=== PATIENT | male | born 1935 | race Caucasian/White ===

== ENCOUNTER 2017-06-17 15:17 | Inpatient (IN) | payer MEDICARE, OTHER ==
[2017-06-17] VITALS (9 sets, daily range): BP systolic 86–203; BP diastolic 60–109; PULSE 99–123; RESP 13–20; O2SAT 93–99
[~2017-06-17] VITALS: Ht 177.8 cm; Wt 86.9 kg
[~2017-06-17 15:17] MED LIST: ASPI1TAB5 PO; ASPI81TA2 PO; CLIN300C4 PO; HYDR10TA12 PO; KETO200T PO; MULT-892 PO; OMEP10SU PO; TUMS PO; [UNRECOGNIZED DRUG - CODE] PO
--- NOTE | 2017-06-17 15:45 | ED.REPORT ---
HPI-Syncope Date of Service Jun 17, 2017 ED Provider: Devon Canela MD Pt is an 81 year old male with a history of HTN, hyperlipidemia, and CAD who presents to the ED via EMS after a syncopal episode prior to arrival. He c/o associated dizziness, LOC, nausea, an episode of spitting secondary to the nausea, weakness, and fatigue. He denies head pain, chest pain, SOB, vomiting, and injury. The pt reports that he was putting his groceries into his car when he felt dizzy and had a syncopal episode. Per EMS, witnesses state that the pt hit the back of his head on the concrete, but did not lose complete consciousness. EMS reports that the pt was reluctant to go to the hospital, but then he had a 2nd syncopal episode. EMS determined that the pt was in A-fib en route with a blood pressure of 135/94. Pt was given 8 mg of Zofran en route. Nursing Notes Stated Complaint: SYNCOPAL EPISODE Chief Complaint: Dysrhythmia/Cardiac Nursing Notes Reviewed: Yes ([employer] not reconciled) Allergies: Coded Allergies: No Known Allergies (Verified , 08/27/07) Scheduled Aspirin-Expunged Drug, Do Not Renew! (Aspirin-Expunged Drug, Do Not Renew!) 81 Mg Tablet 81 MG PO DAILY Cetirizine HCl (Zyrtec) 10 Mg Capsule 10 MG PO HS Cholecalciferol (Vitamin D3) (Vitamin D3) 1,000 Unit Tab.chew 1,000 UNIT PO DAILY Doxazosin (Cardura) 2 Mg Tablet 4 MG PO BID Fluticasone Propionate (Fluticasone Propionate Nasal) 16 Gm [place].susp 1 SPRAY NS BID Furosemide (Furosemide) 40 Mg Tablet 40 MG PO DAILY Hydrocortisone (Hydrocortisone) 20 Mg Tablet 30 MG PO DAILY Ketoconazole-Expunged Drug, Do Not Renew! (Ketoconazole-Expunged Drug, Do Not Renew!) 200 Mg Tablet 200 MG PO BID Lisinopril (Lisinopril) 10 Mg Tablet 10 MG PO 1-2X DAY Metoprolol Tartrate (Metoprolol Tartrate) 25 Mg Tablet 25 MG PO BID Phenylephrine HCl (Sudafed PE) 10 Mg Tablet 10 MG PO Q12HR Pravastatin (Pravastatin) 40 Mg Tablet 40 MG PO DAILY Salmeterol Xinafoate (Serevent Diskus) 50 Mcg/Puff Inhaler 1,400 MCG IH Q12HR Scheduled PRN Albuterol Sulfate (Ventolin HFA Inhaler) 200 Puff/18 Gm Inhaler 1 PUFF INH Q4- 6HR PRN PRN For Wheezing General Time Seen by Provider: 15:30 Chief Complaint Almost passed out Syncope Description: First episode Hx Obtained From: Patient, EMS Arrived By: Ambulance Onset Occurred: Just prior to arrival Symptom Duration: Duration unknown Location: No: Head Severity: Current: No pain currently Severity: Maximum: No pain Recent Healthcare: No recent doctor visit, No recent hospitalization Similar Sx Previous: Yes Past Medical History Past Medical History Restrictive lung disease (patient evaluated for COPD, the workup was negative, and pulmonology thought that this was restrictive disease secondary to scarring following his CABG) Coronary artery disease Bioprosthetic aortic valve Peripheral arterial disease Carotid artery disease Hyperlipidemia History of left subclavian artery stenosis Hypertension History of prostate cancer History of anemia History of spinal stenosis History of idiopathic peripheral neuropathy, history of diastolic congestive heart failure Renal Insufficiency (Cr 1.5) Past Surgical History Denies Smoking History Former Smoker Social History Alcohol Use: "Social" Ambulatory Status Independent Review of Systems Constitutional: Reports: Fatigue Respiratory: Denies: Shortness of breath Cardiovascular: Denies: Chest pain GI: Reports: Nausea, Denies: Vomiting Skin: Denies Diaphoresis Neurologic: Reports: Change LOC, Dizziness, Syncope, Weakness Complete sys rev & neg: except as marked. Physical Exam Initial Vital Signs Vital Signs (First) Date Time Temp Pulse Resp B/P Pulse Ox O2 Delivery O2 Flow Rate FiO2 06/17/17 15:24 36.7 103 13 171/109 99 Room Air Initial VS: Reviewed, Vital signs abnormal Neck: Supple, Full range of motion Abdomen / GI: Soft, Non-tender Upper Extremities: Vascular intact, Neuro intact Skin: Warm, Dry, No cyanosis Psychiatric: Mood/affect normal, Behavior normal General/Constitutional: Awake, Alert, No acute distress, Well appearing Respiratory / Chest: Atraumatic, Breath sounds NL, Breath sounds = bilat Heart Sounds / Murmur: Positive: Murmur present... (II/) Atrial flutter. Lower Extremity / Pelvis / MS: Neurologic intact, Vascular intact Neurologic: Oriented X3, Speech NL Head / Eyes: Atraumatic No vivisble signs of trauma Interpretation & Diagnostics Lab Results Interpretation Result Diagram: 06/17/17 1602 06/17/17 1602 Test 06/17/17 16:02 White Blood Count 10.2th/mm3 (3.8-10.1) Red Blood Count 4.08mil/mm3 (4.40-5.80) Hemoglobin 12.3g/dL (13.8-17.2) Hematocrit 37.5% (41.0-50.0) Mean Corpuscular Volume 91.9fL (81-100) Mean Corpuscular Hemoglobin 30.1pg (27.0-35.0) Mean Corpuscular Hemoglobin Concent 32.8% (32.0-37.0) Red Cell Distribution Width 14.1% (12.3-15.4) Platelet Count 154bil/L (150-400) Neutrophils (%) (Auto) 68.4% (40-74) Lymphocytes (%) (Auto) 19.2% (14-46) Monocytes (%) (Auto) 9.9% (4-12) Eosinophils (%) (Auto) 1.9% (0-5) Basophils (%) (Auto) 0.3% (0-3) Prothrombin Time 10.3sec (8.1-12.5) Prothromb Time International Ratio 0.96ratio Sodium Level 140mEq/L (134-144) Potassium Level 4.3mEq/L (3.5-5.2) Chloride Level 101mEq/L (97-108) Carbon Dioxide Level 19mmol/L (18-29) Blood Urea Nitrogen 29mg/dL (8-27) Creatinine 1.54mg/dL (0.76-1.27) Estimat Glomerular Filtration Rate 46mL/min (>59) Glucose Level 113mg/dL (60-99) Calcium Level 9.7mg/dL (8.5-10.1) Magnesium Level 2.2mg/dL (1.6-2.6) Total Bilirubin 0.4mg/dL (0.0-1.2) Aspartate Amino Transf (AST/SGOT) 19U/L (0-50) Alanine Aminotransferase (ALT/SGPT) 10U/L (0-44) Alkaline Phosphatase 75U/L (25-160) Troponin T < 0.010ug/L (0.0-0.011) Total Protein 8.0g/dL (6.4-8.4) Albumin 4.3g/dL (3.4-5.0) Thyroid Stimulating Hormone (TSH) 1.370uIU/mL (0.450-4.500) Lab Results Interpretation: CBC normal CMP mild renal insufficiency Prone and normal Magnesium normal TSH normal ECG Interpretation ECG Interpretation: EKG demonstrates. Atrial flutter with a ventricular rate of 110 and a predominantly to 1 block, nonspecific repolarization abnormalities more pronounced in V4 through V6-computer reads QT prolongation with QTC of 547, but I think this is an over read air by the computer the atrial fibrillation/flutter is new compared to prior EKGs Time: 15:40 Interpreted by: ED physician ECG Interpretation: Please see the rhythm strip from 15:38 demonstrating atrial flutter with no ventricular conducted beats for prolonged genia corresponding to the patient's syncopal episode ECG Interpretation: ECG - 12/27/16 Interpretation Summary: The left ventricle is normal in size. Left ventricular systolic function is borderline reduced. The ejection fraction is estimated to be 50-55%. There are no focal wall motion abnormalities. Assessment of diastolic parameters indicates a restrictive filling pattern of the left ventricle consistent with significantly elevated filling pressures. LV diastolic function has decreased. The right ventricle is normal in size and function. The right ventricular systolic pressure is estimated at 52 mmHg assuming a right atrial pressure of 8 mm Hg. RVSP has increased. There is mild tricuspid regurgitation. There is a bioprosthetic aortic valve. The prosthetic aortic valve is well- seated. The peak aortic velocity is 2.33 m/sec. The peak aortic velocity on the previous exam was 2.24 m/sec. No aortic regurgitation is present. There is no other significant valvular heart disease. The ascending aorta is mildly enlarged. X-Ray Chest Interpretation Chest Xray Interpretation: IMPRESSION: 1. Persistent loculated left pleural effusion with adjacent airspace opacity consist with compressive atelectasis versus pneumonia or neoplasm. Continued radiographic surveillance to resolution is recommended. Dictated by: Casey ROMERO Interpreted: Lashaun Waggoner MD on 06/17/2017 at 16:05 View: Portable, 1 view Interpretation / Wet Read by: Interpret - Radiologist CT Head Interpretation IMPRESSION: No CT evidence of acute intracranial pathology. Dictated by: Vernon Aguila M.D. on 06/17/2017 at 16:51 Study: Head CT no contrast Interpretation / Wet Read by: Interpret - Radiologist Re-Eval/Medical Decision Med Decision/Clinical Course This is an 81-year-old male who presents having had now multiple episodes of syncope. He reports he had an episode of syncope at home yesterday but did not tell anyone today, but EMS was called when he had a syncopal episode today while loading his groceries. He reports no antecedent symptoms up until a few seconds before it happened when he felt lightheaded, may be some palpitations, but denied chest pain or shortness of breath. EMS was called and is found to be in new onset atrial fibrillation/flutter and had sizable positives during transport, and then as he arrived in the emergency department had another episode of syncope that corresponded to a prolonged episode of marked positive- with atrial, but not ventricular conduction. I was immediately called to the room, and patient's waking up. When he wakes up he has no complaints. Denies chest pain or shortness of breath. He is back in atrial flutter and has a controlled rate. He denies being on any antibiotic. The prior history of both coronary disease and a bioprosthetic aortic valve. He denies fevers chills or infectious symptoms. His blood pressure was normal,'s mentation and exams were normal following this syncopal episode, his third in less than 24 hours. His blood work was normal. Chest x-ray was normal. Cardiology was consulted and saw the patient. They are hoping to perform an atrial oblation the thought that this may be able to fix the problem and need for pacemaker insertion. The patient is being admitted for continued management, and is admitted in improved condition. She did report and his initial syncopal episode that he fell and hit his head, his head is mildly sore-so a head CT was obtained, was negative. Source of Hx: Old records, EMS Re-Evaluation/Progress : Time of Eval: 16:00 Re-Evaluation/Progress Note: Pt rechecked. Informed pt of plan for admission. Pt understands and agrees with plan for admission. All questions addressed. Consultation #1: Referral / Consult Name: Justyn Tyson MD Consulted With: Hospitalist Call Returned at: 16:08 Preschool Teacher Aide: Will see patient, Agrees with eval, Agrees with plan, Accepts admit Consultation #2: Referral / Consult Name: Tracey Stephens MD Consulted With: Cardiology Call Returned at: 15:55 Preschool Teacher Aide: Will see patient, Agrees with eval, Agrees with plan Note: Consulted with Dr. Stephens, who is on-call for Dr. Ware, pt's brim stiffener. Their plan is to do an ablasion. Differential Diagnosis: Positive: Arrhythmia, Dysrhythmia, Negative: Abdominal aortic aneurysm, Acute coronary syndrome, Anemia, Autonomic dysfunction, Closed head injury, Electrolyte disorder, Head trauma, Intracranial bleed, Medication-induced Counseled Regarding: Diagnosis, Lab results, Need for admission Discharge & Departure Impression: Primary Impression: Atrial arrhythmia Additional Impression: Syncope Syncope type: unspecified Qualified Code: R55 - Syncope and collapse Disposition: ADMITTED TO HOSPITAL Discharge Condition All VS Reviewed: Yes Condition: Stable Referrals: Saurabh Crane MD (PCP) Crit Care Except Billable Proc Time Spent: 30-74 minutes Services Performed: Patient management by me, Time spent at bedside, Reviewing test results, Reviewing imaging, Discussing patient care, Documentation in record Scribe Attestation Portions of this note were transcribed by Yue Jaffe. I, Dr. Canela personally performed the history, physical exam and medical decision-making; I reviewed and confirmed the accuracy of the information in the transcribed note. Signed by: Nicole Figueredo, 06/17/17. copies to: Saurabh Crane MD, Matthew F MD Jun 17, 2017 15:44 Yue Tobin Jun 17, 2017 16:56
[2017-06-17] MEDS ORDERED: PHEN-877 PO (15:58)
[2017-06-17] MEDS ORDERED: PRAV40TA PO (15:58)
[2017-06-17] MEDS ORDERED: METO25TA6 PO (15:58)
[2017-06-17] MEDS ORDERED: FURO40TA4 PO (15:58)
[2017-06-17] MEDS ORDERED: FLUT16SP NS (15:58)
[2017-06-17] MEDS ORDERED: CHOL10008 PO (15:58)
[2017-06-17] MEDS ORDERED: ALBU18HF INH (15:58)
[2017-06-17] MEDS ORDERED: LISI10TA PO (15:58)
[2017-06-17] MEDS ORDERED: HYDR20TA2 PO (15:58)
[2017-06-17] MEDS ORDERED: CETI10CA PO (15:58)
[2017-06-17] MEDS ORDERED: DOXA2TAB52 PO (15:58)
[2017-06-17] MEDS ORDERED: SALM50DI IH (15:58)
[2017-06-17 16:06] LABS: BASOPHILS % (AUTO) 0.3 % (0-3); EOSINOPHILS % (AUTO) 1.9 % (0-5); MONOCYTES % (AUTO) 9.9 % (4-12); Mean Corpuscular Hemoglobin 30.1 pg (27.0-35.0); Mean Corpuscular Volume 91.9 fL (81-100); NEUTROPHILS % (AUTO) 68.4 % (40-74); Platelet Count 154 bil/L (150-400)
[2017-06-17 16:09] LABS: INR 0.96 ratio
[2017-06-17 16:16] LABS: Magnesium 2.2 mg/dL (1.6-2.6)
--- NOTE | 2017-06-17 16:23 | DRSVH ---
PROCEDURE: X-RAY CHEST ONE VIEW, PORTABLE ([id number]) INDICATIONS: AFIB TECHNIQUE: One view of the chest was acquired. COMPARISON: [facility], CT, CT CHEST W CONTRAST, 01/11/2017, 1:34 PM. [facility], CR, XR CHEST 1V, 01/11/2017, 11:49 AM. [facility], CR, XR CHEST 2VW, 6, 13:21. [facility], CR, XR CHEST 1VW, 10/03/2016, 14:31. [facility], US, US CHEST PLEURAL, 10/02/2016, 13:10. [facility], CR, CHEST 1VW (PORTABLE), 08/16/2010, 10 :52. FINDINGS: Surgical changes and devices: None. Lungs and pleura: Chronic loculated left pleural effusion redemonstrated and persistent left basilar patchy airspace opacity. Right lung remains clear. Mediastinum: Mediastinal contours appear normal. Heart size is normal. Right paratracheal soft tis aurora prominence unchanged over time. Bones and chest wall: No suspicious bony lesions. Overlying soft tissues appear unremarkable. IMPRESSION: 1. Persistent loculated left pleural effusion with adjacent airspace opacity consist with compressive atelectasis versus pneumonia or neoplasm. Continued radiographic surveillance to resolution is recom mended. Dictated by: Casey Andrew A Interpreted: Lashaun Waggoner MD on 06/17/2017 at 16:05 Approved by: Lashaun Waggoner MD, PhD on 06/17/2017 at 16:21
[2017-06-17 16:28] LABS: TROPONIN T < 0.010 ug/L (0.0-0.011)
--- NOTE | 2017-06-17 16:56 | DRSVH ---
PROCEDURE: CT BRAIN WITHOUT CONTRAST ([id number]) INDICATIONS: syncope -> blunt head trauma TECHNIQUE: Noncontrast 4.5 mm thick angled axial sections acquired from the foramen magnum to the vertex, with c oronal reformats. COMPARISON: None. FINDINGS: Image quality: Excellent. CSF spaces: Basal cisterns are patent. No extra-axial fluid collections. Ventricles are normal in size and shape. Brain: No midline shift. No intracranial masses or hemorrhage. [place]-white matter interface is norm al. Skull and face: Calvarium and visualized facial bones are intact, without suspicious lesions. Mild supraorbital soft tissue contusion. Sinuses: Visualized sinuses and mastoids are clear. IMPRESSION: No CT evidence of acute intracranial pathology. Dictated by: Vernon Aguila M.D. on 06/17/2017 at 16:51 Approved by: Vernon Aguila M.D. on 06/17/2017 at 16:54
[2017-06-17] MEDS ORDERED: Polyethylene Glycol (PEG) 17 Gm Powder PO PRN (17:00)
[2017-06-17] MEDS ORDERED: Alum-Mag Hydrox-Simeth 30 mL Suspension PO PRN (17:00)
[2017-06-17] MEDS ORDERED: Heparin 25K Unit/500mL 0.45 NS 25,000 UNIT in IV Premix 1 EACH IV SCH (18:35)
[2017-06-17] MEDS ORDERED: Heparin 5,000 Unit/mL Inj IVPUSH PRN (18:35)
--- NOTE | 2017-06-17 18:43 | PCM.HPMED ---
Subjective Date of Service Jun 17, 2017 Primary Provider: Admitting Physician: Primary Care Physician: Saurabh Crane MD Attending Physician: Chief Complaint: Syncope History of Present Illness: 81-year-old male with a history hypertension, hyperlipidemia, and CAD who was recently admitted for diabetic foot ulcer present to the emergency department via EMS due to syncopal episode that occurred while putting groceries in the back of his car. Patient states that he had another syncopal episode yesterday when he was sitting in ventilator was tight shoe and then passed out and fell on the floor. The patient states that he can only feel is coming on right before he passes out and began to feel dizzy and lightheaded before waking up on his back with people standing around. There is no incontinence of bowel or bladder and no reports of shaking. It is questionable the patient had an second syncopal episode following the episode that brought him in here. Patient was noted to be in A. fib when EMS arrived and in the emergency department rhythm strips indicate a positive greater than 3 seconds with suspected atrial flutter. Dr. Stephens was able to assess the patient and his currently attempting to get a hold of Dr. Green or possible ablation, although there is no timetable. EKG showed probable A flutter with a ventricular rhythm that was was irregular and a prolonged QTC at 547. Blood work showed new acute kidney injury and mild hyperglycemia. Troponin was negative and TSH was normal. Review of Systems: Complete review of systems performed; pertinent positives and negatives per history of present illness, all other systems reviewed and are negative Allergies Coded Allergies: No Known Allergies (Verified , 06/17/17) Home Medications Aspirin-Expunged Drug, Do Not Renew! (Aspirin-Expunged Drug, Do Not Renew!) 81 Mg Tablet 81 MG PO DAILY Cetirizine HCl (Zyrtec) 10 Mg Capsule 10 MG PO HS Cholecalciferol (Vitamin D3) (Vitamin D3) 1,000 Unit Tab.chew 1,000 UNIT PO DAILY Doxazosin (Cardura) 2 Mg Tablet 4 MG PO BID Fluticasone Propionate (Fluticasone Propionate Nasal) 16 Gm [place].susp 1 SPRAY NS BID Furosemide (Furosemide) 40 Mg Tablet 40 MG PO DAILY Hydrocortisone (Hydrocortisone) 20 Mg Tablet 30 MG PO DAILY Ketoconazole-Expunged Drug, Do Not Renew! (Ketoconazole-Expunged Drug, Do Not Renew!) 200 Mg Tablet 200 MG PO BID Lisinopril (Lisinopril) 10 Mg Tablet 10 MG PO 1-2X DAY Metoprolol Tartrate (Metoprolol Tartrate) 25 Mg Tablet 25 MG PO BID Phenylephrine HCl (Sudafed PE) 10 Mg Tablet 10 MG PO Q12HR Pravastatin (Pravastatin) 40 Mg Tablet 40 MG PO DAILY Salmeterol Xinafoate (Serevent Diskus) 50 Mcg/Puff Inhaler 1,400 MCG IH Q12HR PMH Restrictive lung disease Coronary artery disease Bioprosthetic aortic valve Peripheral arterial disease Carotid artery disease Hyperlipidemia History of left subclavian artery stenosis Hypertension History of prostate cancer History of anemia History of spinal stenosis History of idiopathic peripheral neuropathy, history of diastolic congestive heart failure Surgical History Denies any past surgical history Family History Father at 77 of pneumonia and mother at 94 without significant health problems Social History Hx Alcohol Use: Yes Hx Substance Use: No Hx Tobacco Use: No Smoking Status: Former Smoker ([id number] history) Exam Vital Signs Vital Sign - Last Date Time Temp Pulse Resp B/P Pulse Ox O2 Delivery O2 Flow Rate FiO2 06/17/17 15:49 99 20 120/77 99 Room Air 06/17/17 15:24 36.7 Exam General: Younger than stated age male is very uncomfortable and in pain in the lumbar region HEENT: PERRLA, EOMI, nonicteric, membranes moist; JVD at 75 Lymph: No lymphadenopathy Cardio: Irregular without noted murmur; difficult to tell but sounds like a physiologically split S2 Respiratory: CTA bilaterally, no wheezes, no crackles Abdomen: Soft, positive bowel sounds, nontender, nondistended Extremities: mild edema, 5/5 strength, sensation intact Psych: Appropriate mood and affect Neuro: CN II through XII grossly intact, sensation intact throughout Skin: No rash Lab and Diagnostics Result Diagram: 06/17/17 1602 06/17/17 1602 X-Rays, CTs and MRIs Brain CT No CT evidence of acute intracranial pathology. Dictated by: Vernon Aguila M.D. on 06/17/2017 at 16:51 Chest x-ray 1. Persistent loculated left pleural effusion with adjacent airspace opacity consist with compressive atelectasis versus pneumonia or neoplasm. Continued radiographic surveillance to resolution is recommended. Dictated by: Casey Choffel RRA Interpreted: Lashaun Waggoner MD on 06/17/2017 at 16:05 12-lead ECG See history of present illness Assessment & Plan 81-year-old male with history of hypertension, hyperlipidemia, and CAD who presents in atrial flutter with syncopal episodes 3 with documented ventricular p on April greater than 3 seconds on rhythm strip in the emergency department. Symptomatic atrial flutter; present on admission; ongoing -Multiple episodes of syncope with likely etiology cardiac/ventricular pause; Rate at 120 currently -Discussed with Dr. Stephens who is consulting with Dr. Green -Considered cardioverting but unknown duration of arrhythmia; patient also ate at noon today -Pacer pads placed on patient overnight -Considering metoprolol but awaiting Dr. Stephens -Starting heparin drip tonight -Tele -DR GREEN TO ABLATE 06/18/17; NPO AT MIDNIGHT Acute kidney injury; prednisone admission; ongoing -Creatinine 1.54 on admit -Possibly related to fluid overload second to CHF -Patient also has likely restrictive lung disease which could cause the JVD -Trial of diuresis tonight. If creatinine worsens consult nephrology Mild anemia; is on medicine; ongoing -Hemoglobin 12.3 -Iron and B12 studies Hypertension with history of subclavian stenosis on the left -Blood pressures are erratic depending on which arm is checked -Systolic Blood pressure is oscillating between 171, 120, and 203 depending on which arm is checked -Continue home blood pressure medications including lisinopril, metoprolol Systolic CHF; present on admission; stable -EF from December revealed 50-55% -JVD noted on exam but no edema noted -Continue lasix History restrictive lung disease-continue inhalers, holding prednisone tonight CAD with hx of CABG-continue aspirin HLP-continue statin Disposition: Patient is being admitted to inpatient status with expected length of stay greater than two midnights due to to severity of presentation, duration of treatment, and risks of adverse events disposition Full Code Pain Evaluation: Adequate Pain Control VTE Prophylaxis: Other (heparin drip) Resuscitation Status: CPR: Attempt Resuscitation Attending Statement The patient was seen and examined together with Dr. Helm on 06/17/2017 and I agree with the history, exam and plan as outlined in the note above. . Mauricio Busatmante DO Jun 17, 2017 16:43 Justyn Tyson MD Jun 20, 2017 18:50
[2017-06-17 19:23] LABS: Unsaturated Iron Binding 271.4 ug/dL
--- NOTE | 2017-06-17 19:28 | NUR ---
Arrival to unit/BP Patient arrived to unit in a stable condition. Reports back pain from ER amada, sandor -- swing resident paged for medication (none PRN). Per report in ED, patient has drastically different BP on each arm. On arrival to unit, right arm showed 203/102 and left arm 144/90-- MD aware. No reports of SOB, no n/v, no syncopal episodes since arrival to unit. Pacer pads on per MD orders.
[2017-06-17] MEDS: Salmeterol 50 mcg/Puff 28 Inhalation Diskus INHALATION SCH (20:39)
[2017-06-18] VITALS (24 sets, daily range): BP systolic 96–172; BP diastolic 50–97; PULSE 111–131; RESP 16–22; O2SAT 93–99
[2017-06-18 00:14] LABS: APPEARANCE,URINE CLEAR (CLEAR,HAZY); COLOR,URINE DARK YELLOW (YELLOW); OCCULT BLOOD,URINE NEGATIVE (NEGATIVE); PH,URINE 5.5 (5.0-8.0); UROBILINOGEN,URINE NORMAL (NORMAL)
[2017-06-18 02:04] LABS: BASOPHILS % (AUTO) 0.3 % (0-3); EOSINOPHILS % (AUTO) 3.1 % (0-5); MONOCYTES % (AUTO) 10.8 % (4-12); Mean Corpuscular Hemoglobin 30.3 pg (27.0-35.0); Mean Corpuscular Volume 92.2 fL (81-100); NEUTROPHILS % (AUTO) 73.9 % (40-74); Platelet Count 141 bil/L (150-400)
[2017-06-18 02:28] LABS: INR 0.98 ratio
[2017-06-18 03:15] LABS: TROPONIN T 0.01 ug/L (0.0-0.011)
--- NOTE | 2017-06-18 04:48 | NUR ---
Tele / O2 / Heparin / BPs No c/o chest pain, Tele Afib/Aflutter with HR 100s to 120s with a rare occ PVC, per [employer] Supervisor. Pacer Pads on Pt per MD orders. SpO2 sats at HS only 90-93% on RA, Pt placed on O2 @ 1L NC for extra cardiac perfusion and SpO2 sats improved 95-97%. IV Heparin drip infusing per Cardiac Protocol, with no signs of bleeding. Blood pressures with significant difference from left side to right side, Pt deines dizziness, H/A, lightheadedness, or visual problems. Urine sample sent to the lab per Protocol and was Negative for culture. Pt compliant with NPO status after midnight for possible Pacemaker placement today 06/18/17.
[2017-06-18] MEDS: Salmeterol 50 mcg/Puff 28 Inhalation Diskus INHALATION SCH ×2 (07:50→20:33)
--- NOTE | 2017-06-18 13:43 | CONS ---
[address] [address] CONSULTATION REPORT PATIENT: TINA YU : 1935 MR#: [id number] ADMIT: 06/17/2017 JOB ID: [id number] CARDIOLOGY CONSULTATION: DATE OF SERVICE: 06/18/2017 CHIEF COMPLAINT: Syncope. HISTORY OF PRESENT ILLNESS: The patient is a delightful, 81-year-old man with a history of severe aortic stenosis with aortic valve replacement in 2010 with stented bioprosthesis. He also has history of coronary artery disease in concurrency with his valve replacement. Radial to PDA by cath. 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 He says in hindsight, he has been feeling, weak, tired and sleepy and short of breath for the past three months. He presents after suffering three syncopal episodes in a 24-hour time span. The first syncopal episode occurred June 16 when he was putting on his socks. The second episode occurred on June 17, when he was at [employer]. He was putting groceries in the trunk when he suddenly blacked out. The third episode occurred in the emergency department when he reported there for syncope evaluation. At that time initially upon arrival he was found to be in atrial flutter with rapid ventricular response but unfortunately he developed ongoing atrial flutter with ventricular complexes, so basically transient complete heart block with associated 11 second pause. The patient has a small abrasion on the back of his head. He says he feels okay right now. His brain imaging showed no evidence of intracranial hemorrhage. Even though his heart rate is 120 beats per minute, he is not aware of any palpitations, chest discomfort or shortness of breath PAST MEDICAL HISTORY: 1. Coronary artery disease, status post CABG, radial to PDA in June 2011. 2. Severe aortic stenosis, status post aortic valve replacement with a stented bioprosthesis, June 2011. 3. New onset atrial flutter just diagnosed yesterday, June 17, 2017 with transient complete heart block. 4. Urinary retention; on doxazosin. 5. History of prostate cancer. 6. Hyperlipidemia. 7. Restrictive lung disease, etiology unknown, monitored by Dr. Gandhi. 8. Low back pain, spinal stenosis, and associated peripheral neuropathy. FAMILY HISTORY: Mother at 94 from old age. Father in his 70s from pneumonia SOCIAL HISTORY: He does not smoke. He quit after [id number] history of smoking. He lives alone with his cat and he says he is not close with his family. ALLERGIES: No known drug allergies. MEDICATIONS: At home: 1. Aspirin 81 mg daily. 2. Pravastatin 40 mg daily. 3. Lisinopril 10 mg daily. 4. Metoprolol tartrate 25 mg. 5. Doxazosin 4 mg twice a day. REVIEW OF SYSTEMS: Weakness, shortness of breath, fatigue, syncope. Diminished urinary stream. Otherwise 10 point review of systems is negative. PHYSICAL EXAMINATION: Vital signs: Temperature is 36.8, blood pressure 96/ 50 pulse 130 beats per minute. Satting 96% on 1 L nasal cannula. Well-nourished man, no apparent distress. Eyes: No sclerae icterus. Neck is supple. No lymphadenopathy. No carotid bruits. Heart: Normal S1, S2. No murmurs. It is irregular and tachy. Lungs with crackles at bases bilaterally. Abdomen is soft, positive bowel sounds. Somewhat protuberant but no hepatosplenomegaly. Extremities: Warm and well perfused. No clubbing, cyanosis, or edema. Skin: No rashes or lesions. neuro - non-focal LABORATORY DATA: Labs reviewed. His INR is 1. Most recent PTT 63, on heparin drip. Hematocrit is 35% today. Normal white count. Platelet count 141. Creatinine is 1.3. Potassium 4.2, magnesium 2.2. Lipids are normal: Total cholesterol 161, triglycerides 105, HDL 62, LDL 78. TSH 1.4. DIAGNOSTIC DATA: EKG obtained yesterday showed somewhat atypical flutter with downward pointing V1 and downward pointing flutter wave pattern in leads 2, 3, and aVF. It does not appear to be classic cavotricuspid isthmus dependent flutter. ASSESSMENT: The patient is an 81-year-old man with three episodes of syncope; one of them was captured on telemetry and is consistent with flutter with transient complete heart block. He was symptomatic during that pause that was 11 seconds long and has had 3 syncope episodes in the past 48 hours. However he is not symptomatic when he is in flutter, so it is unknown how long he has had atrial flutter. In hindsight, he believes he has been feeling somewhat unwell since January. PLAN: 1. Atrial flutter. We discussed treatment options which include either treatment for tachybrady syndrome with dual-chamber permanent pacemaker with antiarrhythmic medication and possible cardioversion in the future or ablation in the future and patient agrees to proceed. I think ablation of the flutter alone may be challenging because this is atypical flutter and also because he carries a diagnosis of tachybrady syndrome. We will obtain echocardiogram and anticipate dual-chamber permanent pacemaker implant later today. Echocardiogram has been ordered to see if he has evidence of tachycardia mediated cardiomyopathy as a result of prolonged tachycardia duration. In terms of medical management, due to transient complete heart block, beta erin has been on hold. As a result, his rate is uncontrolled. 2. Hypertension - his hypertension has been difficult to manage because of wide discrepancy between the right arm and left arm reading. I will suggest to the nursing staff to only check his right arm because that is what is patient support representative for blood pressure that his brain sees and his coronary arteries see, so that needs to be less than 140 at all times. Based on nursing documentation, blood pressure in the right arm is in the 140's and on admission when he was in a stressful situation, it was greater than 200. Because of that I recommend continuing doxazosin 4 mg twice a day which helps with his LUTS as well as hypertension. Additionally I recommend continue lisinopril but increasing the dose from 10 mg daily to 20 mg daily. 3. Hyperlipidemia. Lipids are: Pravastatin 40 mg daily. 4. Coronary disease: On aspirin for life. 5. Volume status - he appears to be euvolemic. His Lasix is on but we certainly have the option to restart it if he develops evidence of pulmonary congestion. 6. Stroke prevention - patient's CHADS2 Vasc score at this moment in time is 4 with points for advanced age, hypertension and vascular disease. He meets criteria for anticoagulation so he has been started on heparin drip, but once procedure is completed will have a low threshold to initiate warfarin. Thank you very much for the opportunity to participate in this patient's care. GENI
--- NOTE | 2017-06-18 14:59 | NUR ---
Case Management: Clarification of patient status: inpatient per MD order from admit. Kamla Francis RN
--- NOTE | 2017-06-18 15:14 | NUR ---
P: Arrythmia I: A-fib 126-115. Had a 5 second pause in ED. NPO for pacemaker placement this evening. Heparin gtt off since 1500 per 's order. No c/o chest pain or SOB. Voiding via urinal without difficulty. Pt has 2 peripheral IV's for procedure. 2L/NC with sats 95%. Afebrile Bp stable. Alert and oriented. Seems to demonstrate a little short term memory loss. E: Stable S: Uses call light appropriately. Frequent rounding.
[2017-06-18] MEDS ORDERED: Vancomycin 1,000mg/200 mL NS IV ONE (17:14)
[2017-06-18] MEDS ORDERED: Heparin 10,000 Unit/1,000 mL NS Premix IV ONE (17:16)
[2017-06-18] MEDS ORDERED: Water for Injection 50 ML IV ONE (17:16)
[2017-06-18] MEDS ORDERED: Vancomycin 1,000 mg Inj ONE (17:16)
[2017-06-18] MEDS ORDERED: Bupivacaine-MPF 0.5% 30 mL Inj ONE (17:16)
[2017-06-18] MEDS ORDERED: 0.9% Sodium Chloride 1,000 ML ONE (17:17)
[2017-06-18] MEDS ORDERED: 0.9% Sodium Chloride 250 ML ONE (17:17)
--- NOTE | 2017-06-18 17:23 | PCM.PNMED ---
Subjective Date of Service Jun 18, 2017 Subjective Assessment: Patient states that since admission to the hospital his symptoms have remained stable. He states that if he sits up in bed he instantly becomes lightheaded and must lay back down. Events Overnight: Since admission patient has remained tachycardic with consistently elevated blood pressures. ROS: Admits palpitations, dizziness. Denies fever/chills, nausea/vomiting, headache, weakness, abdominal pain, chest pain, shortness of breath, increased swelling in hands or feet. Exam Vital Signs Vital Sign - Last Date Time Temp Pulse Resp B/P Pulse Ox O2 Delivery O2 Flow Rate FiO2 06/18/17 15:43 37.4 111 16 125/82 98 Nasal Cannula 1.00 172/73 Intake and Output 06/17/17 06/17/17 06/18/17 Cumulative From/Thru 15:00 23:00 07:00 06/17/17 15:24 - 06/18/17 06:47 Intake Total 425 ml 425 ml Output Total 400 ml 400 ml Balance 25 ml 25 ml Intake Oral 250 ml 250 ml IV Total 175 ml 175 ml Output Urine Total 400 ml 400 ml Exam General: No acute distress, well-developed, well-nourished HEENT: Normocephalic, atraumatic. External ears without defect. Pupils equal, round, and reactive to light and accommodation. Anicteric sclerae, moist conjunctivae. Cardiovascular: Tachycardic with irregularly irregular rhythm. no murmurs, rubs , or gallops appreciated Pulmonary: Clear to auscultation bilaterally with no crackles, wheezes, or rhonchi. Normal respiratory effort with no use of accessory muscles. Abdomen: Bowel tones present. Soft, nontender, nondistended. Extremities: No clubbing, cyanosis, edema Skin: Normal temperature, turgor, and texture; no rash, ulcers, or subcutaneous nodules appreciated. Neurological: Cranial nerves grossly intact. Reflexes, coordination, and sensory function within normal limits. Normal muscle strength, tone, and bulk. Psychiatric: Normal mood and affect. Alert and oriented to person, place, and time IVs and Medications IV Fluids 500 mL normal saline delivered with IV medications. Medications Reviewed: Medications were reviewed in detail Medications High risk medications include: Morphine Lab and Diagnostics Result Diagram: 06/18/17 0758 06/18/17 0200 X-Rays, CTs and MRIs Brain CT No CT evidence of acute intracranial pathology. Dictated by: Vernon Aguila M.D. on 06/17/2017 at 16:51 Chest x-ray 1. Persistent loculated left pleural effusion with adjacent airspace opacity consist with compressive atelectasis versus pneumonia or neoplasm. Continued radiographic surveillance to resolution is recommended. Dictated by: Casey Andrew RRA Interpreted: Lashaun Waggoner MD on 06/17/2017 at 16:05 12-lead ECG See history of present illness Assessment & Plan 81-year-old male with history of hypertension, hyperlipidemia, and CAD who presents in atrial flutter with syncopal episodes 3 with documented ventricular p on April greater than 3 seconds on rhythm strip in the emergency department. Symptomatic atrial flutter; present on admission; ongoing - Multiple episodes of syncope with likely etiology cardiac/ventricular pause; Rate at 120 currently - Discussed with Dr. Stephens who is consulting with Dr. Green - Considered cardioverting but unknown duration of arrhythmia; patient also ate at noon on 06/17 - Pacer pads placed on patient overnight - Heparin drip tonight - Tele - Echo completed 06/18/17 report pending - Pending echo report Dr. Stephens to give further recommendations. Acute kidney injury; prednisone admission; ongoing -Creatinine currently trending down -Possibly related to fluid overload, or acutely increased blood pressures. -Patient also has likely restrictive lung disease which could cause the JVD - Consult nephrology if creatinine begins trending up. 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 -Systolic Blood pressure is oscillating between 171, 120, and 203 depending on which arm is checked - Blood pressures and right arm should remain less than 140 at all times. - Continue to HOLD metoprolol due to transient complete heart block - Restart home lisinopril at 20 mg daily per cardiology - Doxazosin 4 mg initiated per cardiology request Systolic CHF; present on admission; stable -EF from December revealed 50-55% -JVD noted on exam but no edema noted - Hold Lasix, no evidence of fluid congestion at this time. Restart if patient becomes fluid congested. History restrictive lung disease-continue inhalers, holding prednisone CAD with hx of CABG-continue aspirin HLP- lipid panel within normal limits, pravastatin 40 mg Disposition: Patient will discharge home when vital signs are under adequate control, and the appropriate medical therapies have been initiated. Full Code VTE Prophylaxis: Other (heparin drip) Resuscitation Status: CPR: Attempt Resuscitation Attending Statement The patient was seen and examined together with Dr. Helm on 06/18/2017 and I agree with the history, exam and plan as outlined in the note above. . Norman Helm DO Jun 18, 2017 17:23 Justyn Tyson MD Jun 20, 2017 18:44
--- NOTE | 2017-06-18 17:36 | NUR ---
Case Management: IMM explained to patient at 1635, all questions answered. Signed original placed in chart, copy given to patient. Mikaela Kam RN
[2017-06-18] MEDS ORDERED: fentaNYL-PF 50 mCg/mL 2 mL Inj ONE (17:46)
--- NOTE | 2017-06-18 18:08 | DRSVH ---
[facility] [address] [place] [address] Echocardiogram Report Name: TINA YU HStudy Date: 06/18/2017 Height: 70 in Hospital Exam Location: [facility] Weight: 188 lb .Gender: Male BSA: 2.0 m2 : 1935 Age: 81 yrs BP: 96/65 mmHg Reason For Study: Atrial Flutter Ordering Physician: Bereket Rowley Performed By: Alyson Polo Referring Physician: BEREKET ROWLEY Interpretation Summary Aflutter with 2:1 conduction. Normal LV size. Mild LVH. There is mild global hypokinesis. EF is 45-50%. Septal dyskinesis due to conduction system abnormality. Mild MAC with normal mitral valve leaflets. There is mild associated MR. There is moderately elevated gradient across the mitral valve measuring at 6 mm Hg. It is most likely due to tachycardia and short diastole. 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 It is functioning normally. Tricuspid valve leaflets are normal with mild-moderate TR. Estimated PA systolic pressure is 35 mm Hg assuming RA pressure of 3 mm Hg. Compared to prior study 12/27/2016 rhythm changed from sinus bradycardia to atrial flutter. Cardiomyopathy is new Procedure: A two-dimensional transthoracic echocardiogram with color flow and Doppler was performed. The study quality was technically adequate. Comparison is made with the echocardiogram of 12/27/2016. The patient was in atrial flutter with heart rates between 97-128 bpm during the exam. Left Ventricle: The left ventricle is normal in size. Left ventricular wall thickness is borderline increased. The ejection fraction is estimated to be 40-45%. There is mild to moderate global hypokinesis of the left ventricle. Diastolic function could not be accurately assessed due to tachycardia. Right Ventricle: The right ventricle is normal size. Right ventricular systolic function is mild to moderately reduced. Atria: The left atrium is moderately dilated. The right atrium is moderately dilated. The interatrial septum is intact with no evidence for an atrial septal defect. Mitral Valve: The mitral valve leaflets appear moderately thickened, but open well. There is mild to moderate mitral annular calcification. The mitral valve mean gradient is 5 mmHg. There is mild mitral regurgitation. Aortic Valve: There is a bioprosthetic aortic valve. No aortic regurgitation is present. Tricuspid Valve: The tricuspid valve leaflets are thin and pliable. There is mild to moderate tricuspid regurgitation. The right ventricular systolic pressure is estimated at 35 mmHg assuming a right atrial pressure of 3 mm Hg. Pulmonic Valve: The pulmonic valve leaflets are thin and pliable; valve motion is normal. There is mild pulmonic regurgitation. Great Vessels: The aortic root is normal size. The ascending aorta is at the upper limits of normal in size. The IVC is of normal diameter and collapses greater than 50% with a sniff. This suggests a low right atrial pressure of 3 mm Hg. Pericardium/ Pleura There is no pericardial effusion. There is no pleural effusion. MMode/2D Measurements & Calculations LVIDd: 5.0 cm RA long axis LVOT diam LVIDs: 3.8 cm LA A2 area: 22.3 cm FS: 25.1 % LA A4 area: 28.6 cm RA area asc Aorta IVSd: 1.1 cm LA length (vol): 6.1 cm Diam: 3.8 cm LVPWd: 1.2 cm LA vol: 88.9 ml : 14.5 cm LA vol index RA vol: 30.8 ml RA : 15.1 mm2 IVC diam: 1.7 cm LV mcnally. diameter/BSA LV sys. diameter/BSA (cm/m^2): 2.5 (cm/m^2): 1.9 Doppler Measurements & Calculations Ao V2 max MVA(VTI) TR max mateo: 281.5 cm/sec MV V2 mean : 203.7 cm/sec TR max P.8 mmHg : 106.6 cm/sec Ao max PG : 3.3 cm2 MV mean PG : 16.6 mmHg Ao mean PG MV V2 VTI: 25.3 cm LVOT Max Mateo : 128.4 cm/sec EMEKA(I,D): 2.6 cm sev ratio: 0.60 Ao V2 mean LV V1 max PG EMEKA indexed to BSA : 145.3 cm/sec (cm^2/m^2): 1.3 Ao V2 VTI: 31.5 cm LV V1 VTI EMEKA(V,D): 2.7 cm2 : 18.9 cm Reading Physician:06:08 PM
[2017-06-18] MEDS: 0.9% Sodium Chloride 1,000 ML IV SCH (18:46)
--- NOTE | 2017-06-18 19:58 | DRSVH ---
PROCEDURE: X-RAY CHEST ONE VIEW, PORTABLE ([id number]) INDICATIONS: For new leads placed TECHNIQUE: One view of the chest was acquired. COMPARISON: None. FINDINGS: Surgical changes and devices: Sternotomy wires, prior CABG likely has been performed. Cardiac pacem aking device and dual chamber leads present, no pneumothorax.. Lungs and pleura: No pleural effusions or pneumothorax. Lungs are again seen to be abnormal with a small pleural effusion or pleural scarring left lung base and mild bibasilar atelectasis and/or pneum onia.. Mediastinum: Mediastinal contours appear normal. Heart size is normal. Bones and chest wall: No suspicious bony lesions. Overlying soft tissues appear unremarkable. IMPRESSION: Stable appearance of what appears to be mild bibasilar atelectasis and/or pneumonia with pleural fluid or scarring lateral left lung base. Pacemaking device and leads placed, without pneum othorax. Dictated by: David Fischer M.D. on 06/18/2017 at 19:54 Approved by: David Fischer M.D. on 06/18/2017 at 19:57
--- NOTE | 2017-06-18 21:48 | NUR ---
back from [facility] pt back from [facility] around 2014 s/p pacemaker placement, pt AFLUTTER rate 120-130s very few v-paced spikes noted, pt SL, eating dinner tolerating well, dressing to left chest wall C/D/I with a very small shadow of a spot, ice pack on shoulder pt denies any pain, pt was on RA SpO2 low 90s placed pt on 1L SpO2 mid 90s, called pts grand-daughter and gave update and she was going to call her mom (pts daughter)
[2017-06-19] VITALS (20 sets, daily range): BP systolic 110–157; BP diastolic 41–90; PULSE 71–130; RESP 14–24; O2SAT 94–100
--- NOTE | 2017-06-19 00:49 | OP ---
[address] [address] OPERATIVE REPORT PATIENT: TINA YU : 1935 MR#: [id number] ADMIT: 06/17/2017 JOB ID: [id number] DATE OF SURGERY: 06/18/2017 PREOPERATIVE DIAGNOSIS(ES): 1. Intermittent complete heart block. 2. Syncope. 3. Paroxysmal atrial flutter and fibrillation. POSTOPERATIVE DIAGNOSIS(ES): 1. Intermittent complete heart block. 2. Syncope. 3. Paroxysmal atrial flutter and fibrillation. PROCEDURES PERFORMED: 1. Dual-chamber pacemaker implantation. 2. Fluoroscopy. SURGEON: Jason Green MD, electrophysiology attending LINEMAN APPRENTICE: Mohamud German PA-C IMPLANTED DEVICES: 1. [employer] pulse generator, model VQ8579, serial #[id number]. 2. Right atrial lead [employer] [id number], 52 cm, [id number]. 3. RV lead [employer] [id number], 58 cm, serial #[id number]. ANESTHESIA: Bolus dosing of Versed and fentanyl were utilized for an appropriate level of sedation. INDICATION: The patient is a pleasant 81-year-old man with recurrent syncope identified to have pauses of greater than 12 seconds on telemetry on presentation while in atrial flutter. He also has a history of sinus bradycardia with a recent admission with syncope as well. After discussion of risks and benefits of dual-chamber pacemaker implantation he opted to proceed. PROCEDURAL DESCRIPTION: Following informed signed consent, the patient was taken to the EP laboratory in a fasting nonsedated state, where he was prepped and draped in usual sterile fashion. The left infraclavicular region was infiltrated with 40 cc of a 50/50 mixture of bupivacaine and lidocaine. Once adequate anesthesia had been achieved, a 3 cm transverse incision was performed 2 cm below the clavicle. Dissection was carried down to the pectoralis fascia. A pocket was then fashioned using a combination of electrocautery and blunt dissection. Once adequate hemostasis had been achieved, access to the left axillary vein was gotten with a micropuncture needle twice to deploy two 0.035, 3 mm J guidewires. Over the first of these, an 8-Mauritian tear-away sheath was advanced. Once the guidewire was removed, an active fixation lead was advanced to the right ventricular outflow tract and ultimately the RV apex. The lead was affixed in position using associated active fixation screw. It was connected to the external analyzer and demonstrated appropriately sensed R waves, impedance. Capture threshold was checked to 10 V and there was no evidence of diaphragmatic stimulation. Attention was now paid to place the right atrial lead over the previously deployed J guidewire. Another 8-Mauritian tear-away sheath was advanced. Once the guidewire was removed, an active fixation lead was advanced to right atrial appendage. It was affixed in position using associated active fixation screw. The lead was connected to external analyzer. Demonstrated appropriately sensed flutter waves and impedance, with no diaphragmatic stimulation at 10 V of asynchronous pacing. After the position and redundancy of both leads had been confirmed in multiple views the leads were anchored to the prepectoralis fascia using their associated anchoring sleeves and two Ethibond sutures. The pocket was then copiously irrigated with antibiotic solution. The leads were connected to a generator, adjusted to the pocket and affixed to the floor of the pocket using 1-0 Ti-Cron suture. The incision was closed with running layers of absorbable suture. The wound was dressed with skin adhesive and a small dressing. At the end of the procedure, the needle, sponge, instrument counts were correct. COMPLICATIONS: None. ESTIMATED BLOOD LOSS: Negligible. DEVICE MEASURED DATA: 1. Right atrial lead 1.9 mV, flutter waves, 430 ohms. 2. RV lead 9.6 mV, 540 ohms, 0.5 V at 0.4 msec. FINAL PROGRAM PARAMETERS: DDD 60-130 beats per. IMPRESSION: Successful dual-chamber pacemaker implantation. PLAN: 1. Stat portable chest x-ray. 2. PA and lateral chest x-ray in the morning. 3. Device interrogation. 4. IV vancomycin through tomorrow. Doxycycline 100 mg p.o. daily x7. 5. Wound check in one week. ATTENDING STATEMENT: Jason Green MD, electrophysiology attending, was present for and supervised/performed all aspects of this procedure.
[2017-06-19] MEDS: Ondansetron 2 mg/mL 2 mL Inj IVPUSH PRN ×2 (04:07→06:03)
[2017-06-19] MEDS: 0.9% Sodium Chloride 1,000 ML IV SCH ×2 (04:57→14:46)
--- NOTE | 2017-06-19 05:03 | NUR ---
vomiting pt vomiting x2 dark liquid, pt denies being nausea or that his stomach is upset or hurt, gave some zofran anyway. a little bit later pt vomiting dark liquid again this time appears to have a maroon tinge to it, called received order to send for toni, make pt NPO and start NS at 100cc/hr. pt still denying any pain or discomfort. pt can be forgetful. tele AFlutter rate 120s with very few v-paced beats Addendum: 06/19/17 at 0627 by CRAIG SULLIVAN RN emsis came back guiacc positive, pt also vomiting another 200cc notified and received order for 40mg IV protonix
[2017-06-19] MEDS ORDERED: Pantoprazole 4 mg/mL 10 mL Inj IVPUSH ONE (06:20)
[2017-06-19] MEDS ORDERED: Vancomycin Inj 1,000 MG in IV Premix 1 EACH IV ONE (06:50)
[2017-06-19] MEDS: Salmeterol 50 mcg/Puff 28 Inhalation Diskus INHALATION SCH ×2 (08:38→21:10)
--- NOTE | 2017-06-19 10:55 | NUR ---
GEOFFREY/cardio The pt left the unit at 1045 for JOSTIN for a GEOFFREY/Cardioversion. The pt left A&Ox3 with VSS
[2017-06-19] MEDS ORDERED: Propofol 10,000 mCg/mL 20 mL Inj ONE (11:28)
[2017-06-19] MEDS ORDERED: 0.9% Sodium Chloride 250 ML IV PRN (12:11)
[2017-06-19] MEDS ORDERED: EPHEDrine Sulfate 50 mg/mL Inj IVPUSH PRN (12:15)
[2017-06-19] MEDS ORDERED: Phenylephrine 10,000 mCg/mL Inj IVPUSH PRN (12:15)
--- NOTE | 2017-06-19 12:19 | DRSVH ---
PROCEDURE: X-RAY CHEST ONE VIEW, PORTABLE ([id number]) INDICATIONS: For new lead placement TECHNIQUE: One view of the chest was acquired. COMPARISON: [facility], CR, XR CHEST 1VW (PORTABLE), 06/17/2017, 15:37. [facility], CT, CT CHEST W CONTRAST, 01/11/2017, 1:34 PM. [facility], CR, XR CHEST 1VW (POR TABLE), 06/18/2017, 19:11. FINDINGS: Surgical changes and devices: Stable positioning of dual chamber left cardiac pacemaker. Median ster notomy wires. Lungs and pleura: No pleural effusions or pneumothorax. Persistent bibasilar airspace opacities pre sent, left greater than right. Small left pleural effusion redemonstrated.. Mediastinum: Mediastinal contours appear normal. Heart size is normal. Bones and chest wall: No suspicious bony lesions. Overlying soft tissues appear unremarkable. IMPRESSION: 1. Small left loculated pleural effusion redemonstrated and bibasilar airspace opacities not signific antly changed suggestive of pneumonia and/or atelectasis. Neoplasm at the left lung base cannot be e xcluded. Continued radiographic surveillance to resolution is recommended. Dictated by: Casey ROMERO Interpreted: Raj Sofia MD on 06/19/2017 at 8:12 Approved by: Lb Sofia M.D. on 06/19/2017 at 12:17
--- NOTE | 2017-06-19 12:25 | PCM.ANEP1 ---
Post Anesthesia PACU Phase 1 Assessment Vital Signs Vital Signs Date Time Temp Pulse Resp B/P Pulse Ox O2 Delivery O2 Flow Rate FiO2 06/19/17 12:20 82 24 129/58 100 Nasal Cannula 4.00 06/19/17 12:15 83 20 130/58 100 Nasal Cannula 4.00 06/19/17 11:16 130 06/19/17 10:59 129 20 157/72 97 Room Air 06/19/17 10:09 Supplement Oxygen 06/19/17 08:36 37.0 128 18 126/68 98 Room Air Anesthetic Administered: GA, MAC Level of Alertness: Awake, talking CONKLIN's with Equal Strength: Yes Pain: No Pain Scale Score: 0 Nausea or Vomiting: No CV Function & Hydration Stable: No Airway Device: N/A Oxygen Delivery: Nasal Cannula Lungs: Clear to Auscultation Dermatome Level: Full Sensation PACU Phase 2 Assessment Complications: No Follow up Care: N/A Patient Instructions Provided: N/A Mauricio Marquez MD Jun 19, 2017 12:25
--- NOTE | 2017-06-19 12:26 | PCM.HPANE ---
Patient Data Surgeon Admitting Provider:Justyn Tyson MD Attending Provider:Justyn Tyson MD Primary Care Physician:Saurabh Crane MD Other Provider: Reason for Visit Syncope, Bradycardia Ht/WT & BMI Height (Feet): 5 Height (Inches): 10.00 Weight (Kilograms): 84.200 Body Mass Index 26.57 Allergies Coded Allergies: No Known Allergies (Verified , 06/17/17) Past Anesthesia History Anesthesia History: Denies:: Abnormal Airway, Anesthesia Reactions, Difficult Intubation, Fam Anesthesia Reaction, Fam Malignant Hypertherm, Malignant Hyperthermia Diabetes History Hx Diabetes?: No Current Bedside Blood Glucose: 114 MRSA MRSA: No Medications Reported Medications Cholecalciferol (Vitamin D3) (Vitamin D3)1,000 Unit Tab.chew1,000 Unit PO DAILY 06/17/17 Albuterol Sulfate (Ventolin HFA Inhaler)200 Puff/18 Gm Inhaler1 Puff INH Q4-6HR PRN For Wheezing #1 INHALER Ref 0 06/17/17 Phenylephrine HCl (Sudafed PE)10 Mg Ufstkc87 Mg PO Q12HR 06/17/17 Salmeterol Xinafoate (Serevent Diskus)50 Mcg/Puff Inhaler1,400 Mcg IH Q12HR 06/17/17 Pravastatin 40 Mg Jiyfzn03 Mg PO DAILY Ref 0 06/17/17 Metoprolol Tartrate 25 Mg Iwsgoa06 Mg PO BID 30 Days Ref 0 06/17/17 Lisinopril 10 Mg Wsbmor15 Mg PO 1-2X DAY 30 Days Ref 0 06/17/17 Hydrocortisone 20 Mg Cqxfev47 Mg PO DAILY 06/17/17 Furosemide 40 Mg Qtnzmx09 Mg PO DAILY 06/17/17 Fluticasone Propionate (Fluticasone Propionate Nasal)16 Gm Ash[place].susp1 [place] NS BID #16 GM Ref 0 06/17/17 Doxazosin (Cardura)2 Mg Tablet4 Mg PO BID Ref 0 06/17/17 Cetirizine HCl (Zyrtec)10 Mg Herzawc67 Mg PO HS #30 CAPSULE Ref 0 06/17/17 Aspirin-Expunged Drug, Do Not Renew! 81 Mg Fbfpbg65 Mg PO DAILY 04/30/11 Ketoconazole-Expunged Drug, Do Not Renew! 200 Mg Lrjmze405 Mg PO BID 04/30/11 Discontinued Reported Medications Calcium Carbonate-Expunged Drug, Do Not Renew (Tums Chewable-Expunged Drug, Do Not Renew!)500 Mg Fmxgjs722 Mg PO PRN 05/17/11 Omeprazole-Expunged Drug, Do Not Renew! 10 Mg Suspdr.pkt10 Mg PO PRN 05/17/11 Multivitamin (Daily Value)1 Each Tablet1 Each PO DAILY 05/17/11 Aspirin/Acetaminophen/Caffeine (Excedrin Extra Strength Geltab)1 Each Tablet1 Each PO PRN 05/17/11 Clindamycin Hcl 300 Mg Lgytpyr850 Mg PO Q8 Q 8 HOURS X 7 DAYS 05/17/11 Cefuroxime Axetil (Ceftin 25 mg/mL)100 Ml Evudcx34 Mg PO BID BID X 4 DAYS 05/17/11 Hydrocortisone-Expunged Drug, Do Not Renew! 10 Mg Zbfpqc13 Mg PO HS 04/30/11 Hydrocortisone-Expunged Drug, Do Not Renew! 10 Mg Jaccuu60 Mg PO AM #2 04/30/11 History History of ENT Problems?: No HEENT History: Positive for:: Sinus Problem (off and on, currently has a cold) Denies:: Abnormal Airway Cataracts Difficult Intubation Dysphagia Glaucoma Hearing Problem TMJ Denture Type: None Teeth Condition: Within Normal Limits Hx of Heart Problems?: Yes Cardiovascular History: Positive for:: Cardiac Surgery (arotic valve replaced and single bypass) Heart Murmur Hypertension (pt gets two different readings on each arm one side high one side low) Denies:: AICD Abdominal Aortic Aneurism Atrial Fibrillation Chest Pain Congestive Heart Failure Coronary Artery Disease Edema Irregular Heartbeat Pacemaker Peripheral Vascular Rheumatic Fever Thrombophlebitis Valvular Heart Disease Hx of Respiratory Problem?: Yes Respiratory History: Positive for:: COPD ("one doctor said i do one doctor said i dont") Dyspnea Denies:: Asthma Chest Surgery Cough Emphysema Hemoptysis Oxygen Administration Pneumonia Pulmonary Embolism Tuberculosis Use of C-PAP Machine Use of Inhalers / NEBS Hx Neurologic Problems?: Yes Neurological History: Positive for:: Dizziness Denies:: Alzheimer's Disease CVA Dementia Headaches Multiple Sclerosis Parkinson's Disease Peripheral Neuropathy Seizures TIA Hx of GI Problems?: No Gastrointestinal History: Denies:: Cirrhosis Diverticulitis Gall Bladder Disease Gastroesphageal Reflux Gastrointestinal Bleeding Heartburn Hepatitis Hiatal Hernia Liver Disease Rectal Bleeding Hx of Problems?: No Genitourinary History: Positive for:: Kidney Stones (once) Urinary Tract Infection Denies:: HX of Hemodialysis HX of Peritoneal Dialysis: No Male Hx: Positive for:: Prostate Problems (prostate cancer 1989) Denies:: Scrotal Mass Testicular Surgery Skin History: Denies:: History Skin Disorders? Pressure Ulcers Hx Musculoskeletal Problems?: No Musculoskeletal History: Denies:: Back Injury Degenerative Joint Fibromyalgia Joint Replacement Musculoskeletal Trauma Myasthenia Gravis Osteoarthritis Rheumatoid Arthritis Systemic Lupus Hx of Psycho/Social Problems?: No Psycho Social History: Denies:: Anxiety Bipolar Disorder Hx Depression Suicide Attempt Hx Surgeries?: Yes Hx Any Other Health Problems?: Yes Other History: Positive for:: Cancer (prostate had cemo and radation ) Hospitalization Denies:: Endocrine Disease Thyroid Disease History Blood Transfusions: Positive for:: Accept Blood Products? Denies:: Blood Transfuse Reaction Blood Transfusions (unsure) Hx Diabetes: NoBedside Blood Glucose: 114 Hx Alcohol Use: Yes (glass a wine /month)Hx Substance Use: No Smoking Status: Former Smoker (18-orfp-ipgi history) Stop/Bang Treated for Sleep Apnea?: Yes Do You Have a CPAP Machine?: Yes Risk Assessment Category Category 1A: Patient has history of documented sleep apnea, and HAS NOT received any narcotic, sedative or anesthesia administration during this stay. Category 1B: Patient has history of documented sleep apnea, and HAS received any narcotic , sedative or anesthesia administration during this stay Category 2: Patient has SUSPECTED Obstructive Sleep Apnea, and HAS received any narcotic , sedative or anesthesia administration during this stay. Category 3: Patient has SUSPECTED Obstructive Sleep Apnea and HAS NOT received narcotic, sedative or anesthesia administration during this stay. Category 4: Outpatient in Procedural Areas with known sleep apnea or who screen positive for High Risk via the STOP/BANG questionnaire. Exam Exam Vital Signs Vital Signs Date Time Temp Pulse Resp B/P Pulse Ox O2 Delivery O2 Flow Rate FiO2 06/19/17 11:16 130 06/19/17 10:59 129 20 157/72 97 Room Air 06/19/17 10:09 Supplement Oxygen 06/19/17 08:36 37.0 128 18 126/68 98 Room Air 06/19/17 04:12 Supplement Oxygen 06/19/17 03:45 125 20 96 Nasal Cannula 1.00 General Appearance: Alert, Oriented X3, Cooperative, No Acute Distress HEENT/AIRWAY: MP 2, Neck Movement (FROM), Mouth Opening (3 FBMO) Lungs: Clear to Auscultation, Normal Air Movement Heart: Exam Unremarkable, Regular Rate/Rhythm, No Murmurs/Rubs/Gallops Meds/Labs/Diagnostics Admission Meds Current Medications Lisinopril 20 mg 20 mg DAILY PO Last administered on 06/19/17 08:39; Start 06/19 at 08:30 Sodium Chloride 1,000 ml @ 100 mls/hr Q10H IV Last administered on 06/19/17 04 :57; Start 06/18/17 at 18:46 Vancomycin/0.9 % Sod Chloride/ Premix (Vancomycin Inj/ IV Premix) 200 ml @ 134 mls/hr ONCE ONCE IV Last administered on 06/19/17 06:36; Start 06/19/17 at 06: 50; Stop 06/19/17 at 08:19; Status DC Pantoprazole (Protonix Inj) 40 mg ONCE ONCE IVPUSH Last administered on 06:33; Start 06/19/17 at 06:20; Stop 06/19/17 at 06:23; Status DC Lidocaine HCl (Xylocaine Viscous 2% Soln 15mL) 15 ml STK-MED ONCE .ROUTE Last administered on 06/19/17 11:14; Start 06/19/17 at 11:11; Stop 06/19/17 at 11:12; Status DC Bedside Blood Glucose: 114 Labs Test 06/17/17 16:02 06/17/17 20:29 06/17/17 23:35 06/18/17 00:01 Magnesium Level 2.2mg/dL (1.6-2.6) Iron Level 48ug/dL (35-150) Total Iron Binding Capacity 319ug/dL (250-450) Percent Iron Saturation 15%sat (15-50) Unsaturated Iron Binding 271.4ug/dL Thyroid Stimulating Hormone (TSH) 1.370uIU/mL (0.450-4.500) Vitamin B12 Level 540pg/mL (211-946) Folate 11.1ng/mL (>3.0) Hold Urine Received (Received) Urine Color Dark yellow (YELLOW) Urine Appearance Clear (CLEAR,HAZY) Urine pH 5.5 (5.0-8.0) Urine Specific [place] 1.025 (1.003-1.035) Urine Protein Negativemg/dL (NEG,TRACE) Urine Glucose (UA) Negativemg/dL (NEGATIVE) Urine Ketones Negativemg/dL (NEGATIVE) Urine Occult Blood Negative (NEGATIVE) Urine Nitrite Negative (NEGATIVE) Urine Bilirubin Negative (NEGATIVE) Urine Urobilinogen Normalmg/dL (NORMAL) Urine Leukocyte Esterase Negative (NEGATIVE) Urine RBC 0-2/hpf (0-2) Urine WBC 0-5/hpf (0-5) Urine Epithelial Cells Occasional/hpf (NONE-MOD) Urine Crystals None seen (NONE SEEN) Urine Bacteria Few/hpf (NONE-FEW) Urine Hyaline Casts Occasional/lpf (NONE) Urine Granular Casts None seen (NONE SEEN) Urine Waxy Casts None seen (NONE SEEN) Urine Red Blood Cell Casts None seen (NONE SEEN) Urine White Blood Cell Casts None seen (NONE SEEN) Urine Mucus None seen (None Seen) Urine Trichomonas None seen (NONE SEEN) Urine Yeast None (NONE SEEN) Urinalysis Comment None Urine Culture Reflexed Not indicated Test 06/18/17 02:00 06/18/17 14:05 06/19/17 02:54 White Blood Count 9.9th/mm3 (3.8-10.1) Red Blood Count 3.83mil/mm3 (4.40-5.80) Mean Corpuscular Volume 92.2fL (81-100) Mean Corpuscular Hemoglobin 30.3pg (27.0-35.0) Mean Corpuscular Hemoglobin Concent 32.9% (32.0-37.0) Red Cell Distribution Width 14.1% (12.3-15.4) Platelet Count 141bil/L (150-400) Neutrophils (%) (Auto) 73.9% (40-74) Lymphocytes (%) (Auto) 11.8% (14-46) Monocytes (%) (Auto) 10.8% (4-12) Eosinophils (%) (Auto) 3.1% (0-5) Basophils (%) (Auto) 0.3% (0-3) Prothrombin Time 10.5sec (8.1-12.5) Prothromb Time International Ratio 0.98ratio Troponin T 0.010ug/L (0.0-0.011) Triglycerides Level 105mg/dL (0-149) Cholesterol Level 151mg/dL (100-199) LDL Cholesterol, Calculated 78.000mg/dL (0-99) VLDL Cholesterol 21.000mg/dL HDL Cholesterol 52mg/dL (>39) Cholesterol/HDL Ratio 2.90 (0.0-4.4) Activated Partial Thromboplast Time 58.4sec (22.8-33.0) Hemoglobin 11.6g/dL (13.8-17.2) Hematocrit 35.3% (41.0-50.0) Sodium Level 138mEq/L (134-144) Potassium Level 4.1mEq/L (3.5-5.2) Chloride Level 103mEq/L (97-108) Carbon Dioxide Level 20mmol/L (18-29) Blood Urea Nitrogen 26mg/dL (8-27) Creatinine 1.18mg/dL (0.76-1.27) Estimat Glomerular Filtration Rate 63mL/min (>59) Glucose Level 116mg/dL (60-99) Calcium Level 9.3mg/dL (8.5-10.1) Total Bilirubin 0.4mg/dL (0.0-1.2) Aspartate Amino Transf (AST/SGOT) 18U/L (0-50) Alanine Aminotransferase (ALT/SGPT) 8U/L (0-44) Alkaline Phosphatase 63U/L (25-160) Total Protein 7.2g/dL (6.4-8.4) Albumin 3.8g/dL (3.4-5.0) Plan Impression Patient chart reviewed, patient interviewed and anesthestic plan with risks, benefits, and alternatives discussed, and informed consent obtained. NPO per Anesth. Guidelines: Yes ASA Physical Status: ASA3 Severe Disease (A fib) Anesthetic Plan: GA, MAC Bene/Risks/Altern/Consents: Yes HP Complete Prior to Induction: Yes Mauricio Marquez MD Jun 19, 2017 11:27
--- NOTE | 2017-06-19 13:26 | PROCED ---
[address] [address] PROCEDURE NOTE PATIENT: TINA YU : 1935 MR#: [id number] ADMIT: 06/17/2017 JOB ID: [id number] DATE OF SERVICE: 06/19/2017 PREOPERATIVE DIAGNOSIS(ES): POSTOPERATIVE DIAGNOSIS(ES): SURGEON: Tracey Stephens M.D. CHIEF COMPLAINT: Flutter. PROCEDURES PERFORMED: 1. GEOFFREY. 2. DC cardioversion. METHOD: Following informed consent, the patient was sedated by anesthesiologist provider, Dr. Marquez. At this point in time, GEOFFREY was performed. No evidence of left atrial appendage thrombus was identified. At this point in time, the probe was withdrawn and DC cardioversion was performed. 100 joules of synchronized energy was delivered. Normal sinus rhythm was restored. After the procedure, I did a limited device check because patient was A sensed, V paced. I prolonged AV delay from sensed AV delay of 150 msec up to 220 msec. I prolonged paced AV delay from 200 msec up to 250 msec. This resulted in patient being A sensed, V sensed at a rate of 85 beats per minute. No complications in the immediate postprocedure. Thank you very much for the opportunity to participate in this patient's care.
--- NOTE | 2017-06-19 17:02 | NUR ---
Social Work: Initial Assessment Data: Pt is an 81 y/o male admitted for syncope, bradycardia. Pt's PCP is Dr Crane, pt's insurance is Medicare with [employer]. EMR reviewed. Readmit score is 3. WAITER/WAITRESS CABIN CLASS met with pt at bedside, role explained. Pt states he lives alone in [place] in a single story home where he uses a cane occasionally, drives, has no hx of HH or SNF, no LTC or VA benefits, and is not a caregiver. Pt states he daughter lives close and is a good support for him. Pt states he has not been up out of bed much, but expects to go home at d/c. WAITER/WAITRESS CABIN CLASS will continue to follow for possible HH need. Assessment: Pt who is independent at baseline, WAITER/WAITRESS CABIN CLASS will continue to follow for possible HH need. Plan: Pt will likely d/c home via POV when medically stable. WAITER/WAITRESS CABIN CLASS will continue to follow for possible HH need and any other d/c planning needs. ASHLEY Hebert Addendum: 06/19/17 at 1705 by MIKA AGUILAR Amended: Links added.
--- NOTE | 2017-06-19 17:35 | NUR ---
JOSTIN Patient to [facility] bed 1 from room 2023 at 1155 for GEOFFREY/cardioversion with sedation administered pr anesthesia. GEOFFREY complete without complication and cardioversion followed successful with 100 joules x 1. Patient recovered in [facility] until fully awake and able to swallow. Daughter at bedside. Transferred back to room by bed. Report to receiving RN.
--- NOTE | 2017-06-19 17:50 | NUR ---
Cardioversion/POC The pt was successfully converted via cardioversion this morning following a GEOFFREY. The POC is to observe pacer recovery overnight, get the pt moving more, then DC home tomorrow or Saturday. The pt is currently A&Ox3 with VSS and has no complaints of pain N/V/D.
--- NOTE | 2017-06-19 20:38 | PCM.PNMED ---
Subjective Date of Service Jun 19, 2017 Subjective 81-year-old male with history of hypertension, hyperlipidemia, and CAD who presents in atrial flutter with syncopal episodes 3 with documented ventricular p on April greater than 3 seconds on rhythm strip in the emergency department. Assessment: Patient was somnolent on initial examination, lying in bed. He stated that he was not feeling very well and I asked probing questions as to ascertain why, he gave vague answers and did not mention his episodes of vomiting last night. Events Overnight: Overnight patient vomited, with multiple episodes of renching. Later episodes resulted in vomiting a maroon liquid which is found to be quite positive. ROS: Denies fever/chills, nausea/vomiting, headache, weakness, abdominal pain, chest pain, shortness of breath, increased swelling in hands or feet. Exam Vital Signs Vital Sign - Last Date Time Temp Pulse Resp B/P Pulse Ox O2 Delivery O2 Flow Rate FiO2 06/19/17 14:15 36.8 88 20 142/57 98 Room Air 06/19/17 12:34 2.00 Intake and Output 06/18/17 06/18/17 06/19/17 Cumulative From/Thru 15:00 23:00 07:00 06/17/17 15:24 - 06/19/17 06:24 Intake Total 350 ml 703 ml 1478 ml Output Total 875 ml 1000 ml 2275 ml Balance -525 ml -297 ml -797 ml Intake Oral 240 ml 600 ml 1090 ml IV Total 110 ml 103 ml 388 ml Output Urine Total 875 ml 500 ml 1775 ml Emesis 500 ml 500 ml Exam General: No acute distress, well-developed, well-nourished HEENT: Normocephalic, atraumatic. External ears without defect. Pupils equal, round, and reactive to light and accommodation. Anicteric sclerae, moist conjunctivae. Cardiovascular: Tachycardic with irregularly irregular rhythm. no murmurs, rubs , or gallops appreciated Pulmonary: Clear to auscultation bilaterally with no crackles, wheezes, or rhonchi. Normal respiratory effort with no use of accessory muscles. Abdomen: Bowel tones present. Soft, nontender, nondistended. Extremities: No clubbing, cyanosis, edema Skin: Normal temperature, turgor, and texture; no rash, ulcers, or subcutaneous nodules appreciated. New 5 cm laceration on the patient's chest above the left pectoral due to recent pacemaker placement. Neurological: Cranial nerves grossly intact. Reflexes, coordination, and sensory function within normal limits. Normal muscle strength, tone, and bulk. Psychiatric: Normal mood and affect. Alert and oriented to person, place, and time IVs and Medications IV Fluids 1200 mL of normal saline delivered with IV medications. Medications Reviewed: Medications were reviewed in detail Lab and Diagnostics Result Diagram: 06/19/17 0254 06/19/17 0254 X-Rays, CTs and MRIs Brain CT No CT evidence of acute intracranial pathology. Dictated by: Vernon Aguila M.D. on 06/17/2017 at 16:51 Chest x-ray 1. Persistent loculated left pleural effusion with adjacent airspace opacity consist with compressive atelectasis versus pneumonia or neoplasm. Continued radiographic surveillance to resolution is recommended. Dictated by: Casey ROMERO Interpreted: Lashaun Waggoner MD on 06/17/2017 at 16:05 12-lead ECG See history of present illness Cardiac Echo Impressions Echocardiogram Report Interpretation Summary Aflutter with 2:1 conduction. Normal LV size. Mild LVH. There is mild global hypokinesis. EF is 45-50%. Septal dyskinesis due to conduction system abnormality. Mild MAC with normal mitral valve leaflets. There is mild associated MR. There is moderately elevated gradient across the mitral valve measuring at 6 mm Hg. It is most likely due to tachycardia and short diastole. 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 It is functioning normally. Tricuspid valve leaflets are normal with mild-moderate TR. Estimated PA systolic pressure is 35 mm Hg assuming RA pressure of 3 mm Hg. Compared to prior study 12/27/2016 rhythm changed from sinus bradycardia to atrial flutter. Cardiomyopathy is new Assessment & Plan 81-year-old male with history of hypertension, hyperlipidemia, and CAD who presents in atrial flutter with syncopal episodes 3 with documented ventricular p on April greater than 3 seconds on rhythm strip in the emergency department. Symptomatic atrial flutter; present on admission; ongoing - Multiple episodes of syncope with likely etiology cardiac/ventricular pause; - Echo completed 06/18/17 shows EF of 45-50% with septal dyskinesis and new cardiomyopathy. - Pacemaker placed on 06/18 - GEOFFREY completed on 06/19, based on results cardioversion was attempted and was successful. - Continue Tele, to ensure patient stays in sinus rhythm - Continue Heparin drip, bridge to oral anticoagulants - Cardiology following Acute kidney injury; prednisone admission; ongoing - Creatinine currently within normal limits - Possibly related to fluid overload, or acutely increased blood pressures. - Patient also has likely restrictive lung disease which could cause the JVD - Consult nephrology if creatinine begins trending up. 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 - Systolic Blood pressures remained stable today - Blood pressures and right arm should remain less than 140 at all times. - Continue to HOLD metoprolol due to transient complete heart block - Restart home lisinopril at 20 mg daily per cardiology - Doxazosin 4 mg initiated per cardiology request - Carvedilol 25 mg added to patient's regimen 06/19 Systolic CHF, acute on chronic; present on admission; stable -EF from December revealed 50-55% -JVD noted on exam but no edema noted - Echo completed 06/18/17 shows EF of 45-50% with septal dyskinesis and new cardiomyopathy. - Continue lisinopril, doxazosin, aspirin, carvedilol - Hold Lasix, no evidence of fluid congestion at this time. Restart if patient becomes fluid congested. History restrictive lung disease-continue inhalers, holding prednisone CAD with hx of CABG-continue aspirin HLP- lipid panel within normal limits, pravastatin 40 mg Disposition: Patient may discharge home in the next 24 hours if heart rhythm remained sinus. Full Code VTE Prophylaxis: Other (heparin drip) Resuscitation Status: CPR: Attempt Resuscitation Attending Statement The patient was seen and examined together with Dr. Helm on 06/19/2017 and I agree with the history, exam and plan as outlined in the note above. . Norman Helm DO Jun 19, 2017 15:24 Justyn Tyson MD Jun 20, 2017 18:45
[2017-06-20] VITALS (9 sets, daily range): BP systolic 104–163; BP diastolic 59–81; PULSE 60–70; RESP 18–20; O2SAT 91–97
[2017-06-20] MEDS: 0.9% Sodium Chloride 1,000 ML IV SCH ×2 (00:07→06:51)
[2017-06-20 04:29] LABS: Mean Corpuscular Volume 93.5 fL (81-100)
--- NOTE | 2017-06-20 06:30 | NUR ---
cardiac/no nausea pt denies any nausea all shift, no vomiting, tolerating po. tele SR rate 70s a few paced beats notes. pt denies any pain had a pretty restful night. if much more confused/forgetful at night then day
--- NOTE | 2017-06-20 06:53 | NUR ---
IVF this morning wanting to restart IVF, hung NS at 100cc/hr encouraged pt to drink more water
[2017-06-20] MEDS: Salmeterol 50 mcg/Puff 28 Inhalation Diskus INHALATION SCH ×2 (08:30→20:08)
--- NOTE | 2017-06-20 11:24 | DRSVH ---
[facility] [address] [place] [address] Echocardiogram Report Name: TINA YU HStudy Date: 06/19/2017 Height: 70 in Hospital Exam Location: [facility] Weight: 188 lb Gender: Male BSA: 2.0 m2 : 1935 Age: 81 yrs BP: 157/72 mmHg Reason For Study: Atrial Flutter Ordering Physician: Bereket Stephens Performed By: Alyson Polo Referring Physician: BEREKET STEPHENS Interpretation Summary Aflutter with rapid ventricular response (2:1 conduction) Normal LV size; mild global hypokinesis. No significant valvular abnormalities. No evidence of JOSE FRANCISCO thrombus Procedure: Informed consent for Transesophageal Echocardiogram, and use of a contrast agent as needed, was obtained prior to the procedure. Sedation was managed by anesthesiologist; see anesthesiology notes for details. A 2D transesophageal echocardiogram with spectral and color flow Doppler was performed. The patient was in atrial flutter during the exam. There were no complications. Atria: No thrombus is detected in the left atrial appendage. Mitral Valve: The mitral valve leaflets appear mildly thickened, but open well. There is mild mitral annular calcification. Aortic Valve: There is a bioprosthetic aortic valve. Reading Physician:11:24 AM
--- NOTE | 2017-06-20 12:05 | PROG NOTE ---
[address] [address] PROGRESS NOTE PATIENT: TINA YU : 1935 MR#: [id number] ADMIT: 06/17/2017 JOB ID: [id number] DATE: 06/20/2017 SUBJECTIVE: The patient says he feels good today. He regrets that he is not going to make it for his high school reunion in [place], but accepts that this is the right thing to do. Since his cardioversion, his energy level is better, his breathing is better, and he has not had any more nausea. OBJECTIVE: Vital signs: Temperature 36.7, blood pressure 104/66 up to 146/81, pulse 60 beats per minute, satting 94% to 95% on room air. Very pleasant man, no apparent distress. Eyes: No scleral icterus. Neck is supple. No lymphadenopathy. No carotid bruits. Heart: Normal S1, S2. No murmurs. Lungs: Clear to auscultation anteriorly. Abdomen is soft, positive bowel sounds. No hepatosplenomegaly. Extremities: Warm and well-perfused. No clubbing, cyanosis, or edema. Skin: No rashes or lesions. His abdomen is somewhat distended with diminished bowel sounds. His weight is up 1.6 kg between yesterday and today. CURRENT MEDICATIONS: 1. Aspirin 81 mg daily. 2. Pravastatin 40 mg daily. 3. Carvedilol 25 mg twice a day. 4. Lisinopril 10 mg daily. 5. Serevent Diskus. 6. Doxazosin 4 mg twice a day mostly for urinary retention. ASSESSMENT AND PLAN: This is an 81-year-old gentleman with history of coronary artery disease, status post single-vessel coronary artery bypass grafting and paroxysmal atrial flutter with transient heart block. 1. Paroxysmal atrial flutter: Patient is currently on beta erin for flutter prevention. As an outpatient, we have the option for him to see Dr. Green and discuss flutter ablation, but right now will just use beta erin only. 2. I am reluctant to reduce the beta erin dose because I worry he is going to go back into his flutter if we do that. 3. In terms of stroke prevention, he is on heparin drip at this moment in time. He has renal insufficiency. His creatinine is 1.8 today and his calculated glomerular filtration rate is 38 mL/minute consistent with stage III chronic kidney disease. I asked the primary team to explore his options on all anticoagulants. Technically he could be eligible for Eliquis 2.5 mg twice a day or Xarelto 50 mg daily or warfarin. He is not a good candidate for Pradaxa due to advanced age. His options for outpatient anticoagulation will be explored by the primary team. 4. Device therapy: The patient has transient complete heart block. He is status post dual-chamber permanent pacemaker which is healing quite nicely and he appears to be basically 100% atrially paced on the monitor. He is occasionally V paced and I deliberately prolonged his AV delay to minimize the risk of RV pacing 5. Reduced blood pressure: His blood pressure was elevated yesterday peaking at 160/72, so I aggressively titrated up his lisinopril from 10-20 mg per day. Unfortunately now that possibly resulted in renal insufficiency, so will be backing down to the prior dose of 10 mg daily. The cause for his acute renal insufficiency right now is not clear to me and I think the primary team will be exploring this issue. Of note, his urine sample obtained June 18 showed no red blood cells, negative leukocyte esterase, negative nitrates, negative occult blood and no protein. 6. I suspect it could have been just due to low cardiac output in the setting of cardiomyopathy and atrial flutter with rapid ventricular response. Hopefully his kidney function improves. He will be ready to go home tomorrow, June 21. Thank you very much for the opportunity to participate in his care.
--- NOTE | 2017-06-20 13:19 | NUR ---
Evaluation completed. Please go to "Notes" then click on "Assessments and Notes" (bottom left corner of screen). Then select appropriate discipline tab on top of screen.
--- NOTE | 2017-06-20 13:22 | NUR ---
NUTRITION ASSESSMENT: ASSESS: Pt is an 81yo M admitted for syncope and bradycardia. He is status post single-vessel coronary artery bypass grafting and paroxysmal atrial flutter with transient heart block. Cardiology is following. He has been NPOx3 days due to multiple procedures. On 06/19 pt experienced some increased nausea and some vomiting. Today pt does not report any n/v. PMHX: CAD, PAD, HLD, HTN, prostate ca, CHF LABS: Reviewed. 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 zofran GI: 0 BM SKIN: no issues noted CURRENT WTS: 85.8kg, BMI 27.1kg/m2, admit wt 84.8kg DIET: NPOx3 days EST. NEEDS: Kcals: 2145-2575kcal/day (25-30kcal/kg) Pro: 85-100g/day (1-1.2g/kg) NUTRITION DIAGNOSIS: 1.) Inadequate oral intake related to decreased ability to consume sufficient energy as evidenced by current NPO status NUTRITION INTERVENTION: 1.) Recommend advance diet when medically appropriate MONITOR / EVAL: NPO, diet advc, PO, BM, wt, POC, nutrition status. Will continue to monitor per high nutrition risk guidelines
--- NOTE | 2017-06-20 17:34 | PCM.PNMED ---
Subjective Date of Service Jun 20, 2017 Subjective 81-year-old male with history of hypertension, hyperlipidemia, and CAD who presents in atrial flutter with syncopal episodes 3 with documented ventricular p on April greater than 3 seconds on rhythm strip in the emergency department. Assessment: Patient is comfortable laying in bed. He states it is felt considerably better since the surgery and cardioversion. States that he has felt somewhat unsteady on his feet due to peripheral neuropathy. Events Overnight: No acute events overnight. ROS: Denies fever/chills, nausea/vomiting, headache, weakness, abdominal pain, chest pain, shortness of breath, increased swelling in hands or feet. Exam Vital Signs Vital Sign - Last Date Time Temp Pulse Resp B/P Pulse Ox O2 Delivery O2 Flow Rate FiO2 06/20/17 08:10 36.7 60 18 146/81 95 Room Air 06/19/17 12:34 2.00 Intake and Output 06/19/17 06/19/17 06/20/17 Cumulative From/Thru 15:00 23:00 07:00 06/17/17 15:24 - 06/20/17 06:28 Intake Total 300 ml 400 ml 2178 ml Output Total 525 ml 400 ml 3200 ml Balance -225 ml 0 ml -1022 ml Intake Oral 300 ml 400 ml 1790 ml IV Total 388 ml Output Urine Total 525 ml 400 ml 2700 ml Emesis 500 ml Exam General: No acute distress, well-developed, well-nourished HEENT: Normocephalic, atraumatic. External ears without defect. Pupils equal, round, and reactive to light and accommodation. Anicteric sclerae, moist conjunctivae. Cardiovascular: Bradycardic with rate in sinus rhythm. no murmurs, rubs, or gallops appreciated Pulmonary: Clear to auscultation bilaterally with no crackles, wheezes, or rhonchi. Normal respiratory effort with no use of accessory muscles. Abdomen: Bowel tones present. Soft, nontender, nondistended. Extremities: No clubbing, cyanosis, edema Skin: Normal temperature, turgor, and texture; no rash, ulcers, or subcutaneous nodules appreciated. New 5 cm laceration on the patient's chest above the left pectoral due to recent pacemaker placement. Neurological: Cranial nerves grossly intact. Reflexes, coordination, and sensory function within normal limits. Normal muscle strength, tone, and bulk. Psychiatric: Normal mood and affect. Alert and oriented to person, place, and time IVs and Medications IV Fluids 120 mL/hour normal saline Medications Reviewed: Medications were reviewed in detail Lab and Diagnostics Result Diagram: 06/20/17 0358 06/20/17 0358 X-Rays, CTs and MRIs Brain CT No CT evidence of acute intracranial pathology. Dictated by: Vernon Aguila M.D. on 06/17/2017 at 16:51 Chest x-ray 1. Persistent loculated left pleural effusion with adjacent airspace opacity consist with compressive atelectasis versus pneumonia or neoplasm. Continued radiographic surveillance to resolution is recommended. Dictated by: Casey Andrew RRRos Interpreted: Lashaun Waggoner MD on 06/17/2017 at 16:05 12-lead ECG See history of present illness Cardiac Echo Impressions Echocardiogram Report Interpretation Summary Aflutter with 2:1 conduction. Normal LV size. Mild LVH. There is mild global hypokinesis. EF is 45-50%. Septal dyskinesis due to conduction system abnormality. Mild MAC with normal mitral valve leaflets. There is mild associated MR. There is moderately elevated gradient across the mitral valve measuring at 6 mm Hg. It is most likely due to tachycardia and short diastole. 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 It is functioning normally. Tricuspid valve leaflets are normal with mild-moderate TR. Estimated PA systolic pressure is 35 mm Hg assuming RA pressure of 3 mm Hg. Compared to prior study 12/27/2016 rhythm changed from sinus bradycardia to atrial flutter. Cardiomyopathy is new Assessment & Plan 81-year-old male with history of hypertension, hyperlipidemia, and CAD who presents in atrial flutter with syncopal episodes 3 with documented ventricular p on April greater than 3 seconds on rhythm strip in the emergency department. Symptomatic atrial flutter; present on admission; ongoing - Multiple episodes of syncope with likely etiology cardiac/ventricular pause; - Echo completed 06/18/17 shows EF of 45-50% with septal dyskinesis and new cardiomyopathy. - Pacemaker placed on 06/18 - GEOFFREY completed on 06/19, based on results cardioversion was attempted and was successful. - Continue Tele, to ensure patient stays in sinus rhythm - Continue Heparin drip, bridge to oral anticoagulants - Cardiology following Acute kidney injury; present on admission; ongoing - Possibly related to fluid overload, or acutely increased blood pressures. - Patient also has likely restrictive lung disease which could cause the JVD - 06/20 creatinine significantly elevated this morning, fluid started, discussed this with Dr. Stephens who decreased his lisinopril from 20 to 10 - We will reassess tomorrow, if kidney function is improved patient may be discharged at that time Mild anemia; is on medicine; ongoing -Hemoglobin currently stable -Iron panel within normal limits -B12 and folate studies within normal limits Hypertension with history of subclavian stenosis on the left -Blood pressures are erratic depending on which arm is checked, nurses are to check RIGHT arm only per request of cardiology. - Systolic Blood pressures were considerably lower than previous, lisinopril decreased from 20-10 - Blood pressures and right arm should remain less than 140 at all times. - Continue to HOLD metoprolol due to transient complete heart block - Doxazosin 4 mg initiated per cardiology request - Carvedilol 25 mg added to patient's regimen 06/19 Systolic CHF, chronic; present on admission; stable -EF from December revealed 50-55% -JVD noted on exam but no edema noted - Echo completed 06/18/17 shows EF of 45-50% with septal dyskinesis and new cardiomyopathy. - Continue lisinopril, doxazosin, aspirin, carvedilol - Hold Lasix, no evidence of fluid congestion at this time. Restart if patient becomes fluid congested. History restrictive lung disease-continue inhalers, holding prednisone CAD with hx of CABG-continue aspirin HLP- Lipid panel within normal limits, pravastatin 40 mg Peripheral neuropathy - Pt involved in the patient's care and evaluating discharge Disposition: Patient may discharge home in the next 24 hours if heart rhythm remained sinus, and kidney function improves. Full Code VTE Prophylaxis: Other (heparin drip) Resuscitation Status: CPR: Attempt Resuscitation Attending Statement The patient was seen and examined together with Dr. Helm on 06/20/2017and I agree with the history, exam and plan as outlined in the note above. . Norman Helm DO Jun 20, 2017 12:55 Justyn Tyson MD Jun 20, 2017 18:48
--- NOTE | 2017-06-20 17:57 | NUR ---
Multidisciplinary Communication 0838 - His daughter Candida called and requested an update. After she was able to identify the patients name and date of she was given an update. She said to pass along to the MDs that she and her family were concerned with his neuropathy and his ability to get up and move around. She also said that her sister Mikaela would be able to stay with their dad this weekend after he discharged. 0950 - Discussed his care with Dr. Tyson, Dr. Cullen, and the rest of the multidisciplinary care team during morning rounds. Discussed the daughter's concerns about mobility. Also, pointed out that his dose of Lisinopril was discontinued for today. Dr. Tyson acknowledged this information. 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 1255 - Dr. Helm said to have the patient call his insurance to see if they would cover Eliquis or Xeralto once he discharges. Tried to call the patient's insurance about 1438 to find out which medication would be covered, but was unable to get through. Called Social work and left a message. Dr. Helm was notified in a [employer] page. 1326 - His daughter Mikaela was updated on his care and condition after she was able to identify his name and date of . She said she was on her way up from [place] to come and visit him and get the DPOA paperwork from Social Work. 1633 - Spoke to his daughter, Mikaela, who had arrived to visit him. She said she was able to get the DPOA paperwork from Social Work. She said that for his discharge tomorrow it would be best for her to pick him later in the evening as she has to work until about 1530 or so and has a long way to drive. Told her that this would be a possibility. Care continues.
[2017-06-21] VITALS (10 sets, daily range): BP systolic 104–175; BP diastolic 60–79; PULSE 60–63; RESP 14–18; O2SAT 92–97
[2017-06-21 04:18] LABS: BASOPHILS % (AUTO) 0.2 % (0-3); EOSINOPHILS % (AUTO) 8.2 % (0-5); MONOCYTES % (AUTO) 15.4 % (4-12); Mean Corpuscular Hemoglobin 29.8 pg (27.0-35.0); Mean Corpuscular Volume 91.9 fL (81-100); NEUTROPHILS % (AUTO) 62.9 % (40-74); Platelet Count 149 bil/L (150-400)
[2017-06-21 04:40] LABS: Magnesium 2.2 mg/dL (1.6-2.6)
--- NOTE | 2017-06-21 05:41 | NUR ---
Oxygenation: Upon initial assessment, the pt's oxygen saturations were noted to be 91 to 92% on RA. Pt placed on 2 L per NC, and oxygen saturations were noted in the mid to high 90s during the night. Will encourage a trial on room air when pt awakes this am.
[2017-06-21] MEDS: Salmeterol 50 mcg/Puff 28 Inhalation Diskus INHALATION SCH ×2 (08:13→20:04)
--- NOTE | 2017-06-21 13:10 | NUR ---
NUTRITION FOLLOW-UP: ASSESS: Pt is an 81yo M admitted for syncope and bradycardia. He is status post single-vessel coronary artery bypass grafting and paroxysmal atrial flutter with transient heart block. Cardiology is following. He had been NPOx3 days due to multiple procedures. Diet was able to be advanced /. Tolerating PO well at 50-75% of meals. Pt has not had a BM during admit PMHX: CAD, PAD, HLD, HTN, prostate ca, CHF LABS: Reviewed. 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 zofran GI: 0 BM SKIN: no issues noted CURRENT WTS: 85.8kg, BMI 27.1kg/m2, admit wt 84.8kg DIET: Heart Healthy, PO 50-75% EST. NEEDS: Kcals: 2145-2575kcal/day (25-30kcal/kg) Pro: 85-100g/day (1-1.2g/kg) NUTRITION DIAGNOSIS: 1.) Inadequate oral intake related to decreased ability to consume sufficient energy as evidenced by current NPO status--IMPROVING NUTRITION INTERVENTION: 1.) Continue current diet. Encourage PO intake 2.) Recommend addition of bowel meds if pt continues to not have BM MONITOR / EVAL: PO, BM, wt, POC, nutrition status. Will continue to monitor per low nutrition risk guidelines
[2017-06-21] MEDS ORDERED: RIVA15TA PO (14:27)
[2017-06-21] MEDS ORDERED: APIX2.5T PO (14:28)
--- NOTE | 2017-06-21 15:20 | NUR ---
Faxed scripts to [facility] per PART [employer]ER to inquire about co-pay amounts. Xarelto would cost $193.68 and Eliquis would cost $97.05. updated [employer]
[2017-06-21] MEDS ORDERED: CARV25TA2 PO (15:44)
--- NOTE | 2017-06-21 16:18 | PCM.DIMED ---
Norman Helm DO 06/21/17 1418: Discharge Instructions Date of Service Jun 21, 2017 Dates of Hospitalization Jun 17, 2017 at 16:59 Discharge Diagnosis Discharge Diagnosis Symptomatic atrial flutter; present on admission; ongoing Acute kidney injury; present on admission; ongoing Mild anemia; is on medicine; ongoing Hypertension with history of subclavian stenosis on the left Systolic CHF, chronic; present on admission; stable History restrictive lung disease, chronic CAD with hx of CABG, chronic HLP, chronic Peripheral neuropathy, chronic Medication Instructions Additional med instructions In addition to your regular home medications Please take Eliquis 2.5mg twice per day take carvedilol 25mg QD until seen by cardiology Test Results Test Results X-rays show small atalectasis in your lungs which is a mild collapsing of the lower lung, this is likely a benign process, but we would like you to followup with your PCP concerning this lesion. Diet Discharge Diet: Heart Healthy Activity Discharge Activity: No restrictions Call your provider Call your provider for: Fever or Chills, Shortness of breath, Bleeding, Chest pain, Vomitting, Excessive diarrhea, Weakness (unilateral) Patient Instructions Patient Instructions Please be careful as you go home in moving about the house. Physical therapy recommends home health, but you did not want this, which is fine, just be careful while ambulating. Follow-up plan Followup closely with cardiology and PCP Follow-up Provider: Saurabh Crane MD Follow-up with PCP in: 1 week Provider: Tracey Stephens MD Follow-up in: 1 week Pierre Cullen DO 06/23/17 1148: Norman Helm DO Jun 21, 2017 14:18 Pierre Cullen DO Jun 23, 2017 11:48
--- NOTE | 2017-06-21 17:46 | NUR ---
Social Work Note: Continued Discharge Planning Data& Assessment: Per MD, pt discharge is being canceled as pt is not feeling well and is suddenly unsteady on his feet per ambulation with RN. Pt previously was ambulating 180ft with PT yesterday and PT recommended home health PT. However, pt conditioned worsened this afternoon. SW spoke with pt, pt friend at bedside and pt daughter Mikaela via t/c. RN and MD all updated and agreeable to plan. PT to see pt and reassess tomorrow. Plan: Anticipated discharge home with home health vs. SNF pending PT re-assessment and confirmation from MD that pt is medically ready to discharge as pt condition declined this afternoon. ASHLEY Cabrera
--- NOTE | 2017-06-21 18:23 | PCM.PNMED ---
Subjective Date of Service Jun 21, 2017 Subjective Assessment: Patient states that he is feeling better today however has had more trouble moving around due to the fact that he is had multiple procedures in the last couple of days and has mostly remained lying flat on his back. At baseline he is moderately unstable. And states that he is more unstable now that he has been in the hospital for so long. Physical therapy saw the patient yesterday and stated that he was okay to go home, however as the nurse was getting the patient ready for discharge she noted that he was not quite steady on his feet and was unsure about sending the patient home especially given his new blood thinner regimen. We will hold the patient for the next 24 hours while plans were made for his discharge which may include a assisted facility. Events Overnight: No acute events overnight. ROS: Denies fever/chills, nausea/vomiting, headache, weakness, abdominal pain, chest pain, shortness of breath, increased swelling in hands or feet. Exam Vital Signs Vital Sign - Last Date Time Temp Pulse Resp B/P Pulse Ox O2 Delivery O2 Flow Rate FiO2 06/21/17 16:00 36.9 61 143/60 92 06/21/17 11:17 18 Room Air 06/21/17 04:03 2.00 Intake and Output 06/20/17 06/20/17 06/21/17 Cumulative From/Thru 15:00 23:00 07:00 06/17/17 15:24 - 06/20/17 19:53 Intake Total 1700 ml 3878 ml Output Total 625 ml 3825 ml Balance 1075 ml 53 ml Intake Oral 500 ml 2290 ml IV Total 1200 ml 1588 ml Output Urine Total 625 ml 3325 ml Emesis 500 ml Exam General: No acute distress, well-developed, well-nourished HEENT: Normocephalic, atraumatic. External ears without defect. Pupils equal, round, and reactive to light and accommodation. Anicteric sclerae, moist conjunctivae. Cardiovascular: Bradycardic with rate in sinus rhythm. no murmurs, rubs, or gallops appreciated Pulmonary: Clear to auscultation bilaterally with no crackles, wheezes, or rhonchi. Normal respiratory effort with no use of accessory muscles. Abdomen: Bowel tones present. Soft, nontender, nondistended. Extremities: No clubbing, cyanosis, edema Skin: Normal temperature, turgor, and texture; no rash, ulcers, or subcutaneous nodules appreciated. New 5 cm laceration on the patient's chest above the left pectoral due to recent pacemaker placement. Neurological: Cranial nerves grossly intact. Reflexes, coordination, and sensory function within normal limits. Normal muscle strength, tone, and bulk. Psychiatric: Normal mood and affect. Alert and oriented to person, place, and time IVs and Medications Medications Reviewed: Medications were reviewed in detail Medications High-risk medications include: Heparin drip Lab and Diagnostics Result Diagram: 06/21/17 0345 06/21/17 0345 X-Rays, CTs and MRIs Brain CT No CT evidence of acute intracranial pathology. Dictated by: Vernon Aguila M.D. on 06/17/2017 at 16:51 Chest x-ray 1. Persistent loculated left pleural effusion with adjacent airspace opacity consist with compressive atelectasis versus pneumonia or neoplasm. Continued radiographic surveillance to resolution is recommended. Dictated by: Casey Andrew RRRos Interpreted: Lashaun Waggoner MD on 06/17/2017 at 16:05 12-lead ECG See history of present illness Cardiac Echo Impressions Echocardiogram Report Interpretation Summary Aflutter with 2:1 conduction. Normal LV size. Mild LVH. There is mild global hypokinesis. EF is 45-50%. Septal dyskinesis due to conduction system abnormality. Mild MAC with normal mitral valve leaflets. There is mild associated MR. There is moderately elevated gradient across the mitral valve measuring at 6 mm Hg. It is most likely due to tachycardia and short diastole. 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 It is functioning normally. Tricuspid valve leaflets are normal with mild-moderate TR. Estimated PA systolic pressure is 35 mm Hg assuming RA pressure of 3 mm Hg. Compared to prior study 12/27/2016 rhythm changed from sinus bradycardia to atrial flutter. Cardiomyopathy is new Assessment & Plan 81-year-old male with history of hypertension, hyperlipidemia, and CAD who presents in atrial flutter with syncopal episodes 3 with documented ventricular p on April greater than 3 seconds on rhythm strip in the emergency department. Symptomatic atrial flutter; present on admission; ongoing - Multiple episodes of syncope with likely etiology cardiac/ventricular pause; - Echo completed 06/18/17 shows EF of 45-50% with septal dyskinesis and new cardiomyopathy. - Pacemaker placed on 06/18 - GEOFFREY completed on 06/19, based on results cardioversion was attempted and was successful. - DC Tele - Continue Heparin drip, bridge to oral anticoagulants - Cardiology following Acute kidney injury; present on admission; ongoing - Possibly related to fluid overload, or acutely increased blood pressures. - Patient also has likely restrictive lung disease which could cause the JVD - 06/20 creatinine significantly elevated, Dr. Stephens decreased his lisinopril from 20 to 10 - 06/21 kidney function significantly improved Mild anemia; is on medicine; ongoing -Hemoglobin currently stable -Iron panel within normal limits -B12 and folate studies within normal limits Hypertension with history of subclavian stenosis on the left -Blood pressures are erratic depending on which arm is checked, nurses are to check RIGHT arm only per request of cardiology. - Systolic Blood pressures were considerably lower than previous, lisinopril decreased from 20-10 - Blood pressures and right arm should remain less than 140 at all times. - Continue to HOLD metoprolol due to transient complete heart block - Doxazosin 4 mg initiated per cardiology request - Carvedilol 25 mg added to patient's regimen 06/19 Systolic CHF, chronic; present on admission; stable -EF from December revealed 50-55% -JVD noted on exam but no edema noted - Echo completed 06/18/17 shows EF of 45-50% with septal dyskinesis and new cardiomyopathy. - Continue lisinopril, doxazosin, aspirin, carvedilol - Hold Lasix, no evidence of fluid congestion at this time. Restart if patient becomes fluid congested. History restrictive lung disease-continue inhalers, holding prednisone CAD with hx of CABG-continue aspirin HLP- Lipid panel within normal limits, pravastatin 40 mg Peripheral neuropathy - Pt involved in the patient's care and evaluating discharge. Yesterday PT stated that the patient was able to be discharged home , however on discharge today the nurse noted that the patient was quite unsteady on his feet. The patient also notes these changes and feels more unsteady than his typical baseline. We are currently working with the patient and his family to find an appropriate place that the patient may go to for supervision over the next couple of days as he regains his strength. Disposition: Patient may discharge home in the next 24 hours if an appropriate place can be found which provides 24-hour care. Home health will not be enough due to the infrequency of visits. Full Code Pain Evaluation: Adequate Pain Control VTE Prophylaxis: Other (heparin drip) Resuscitation Status: CPR: Attempt Resuscitation Attending Statement The patient was seen and examined together with Dr. Helm on 06/21/2017 and I agree with the history, exam and plan as outlined in the note above. . oNrman Helm DO Jun 21, 2017 18:23 Justyn Tyson MD Jun 22, 2017 18:25
--- NOTE | 2017-06-21 18:24 | NUR ---
Discharged cancelled noted pt was unsteady on his feet upon discharged, however friend in room stating pt is at baseline but uses a cane at home. Talked to daughter, daughter stating father a little unsteady however not to the point of drifting side ways. When getting pt up, pt so unsteady needing one person assist to FWW. Pt able to walk with FWW however stating feeling SOB and dizzy and drifting to his right side. MD made aware, discharged cancelled at this time. Will reevaluate with Physical Therapy tomorrow. Daughters made aware.
[2017-06-22] VITALS (7 sets, daily range): BP systolic 153–176; BP diastolic 62–78; PULSE 60–63; RESP 18–20; O2SAT 92–97
--- NOTE | 2017-06-22 06:38 | NUR ---
Restful Night/HTN Pt had no complaints of pain overnight, adjusted self in bed and voiced needs appropriately. This morning BP 160s/60s, pt reports inconsistent BPs, also seen in vitals trend, MD notified, no new orders. Pt has morning BP meds ordered. Right arm BPs done per note.
[2017-06-22] MEDS: Salmeterol 50 mcg/Puff 28 Inhalation Diskus INHALATION SCH ×2 (09:24→19:48)
--- NOTE | 2017-06-22 13:03 | NUR ---
Social Work Note: Continued Discharge Planning Data& Assessment: Per PT, pt require SNF for strengthening and rehab. Per MD order, SW met with pt at bedside to provide SNF list for preferences and discuss discharge planning. Pt states his first preference is for [facility], and he will review the SNF list for a second preference in case [facility] does not have bed availability. SW provided referral to Mary at [facility] who will review pt and notify SW on acceptance or denial. Pt denies any other needs. SW to continue to follow. Plan: Anticipated discharge to [facility] pending acceptance and medical readiness for discharge. [facility] is reviewing pt clinicals. Pt denies any other needs. SW to continue to follow. ASHLEY Cabrera
--- NOTE | 2017-06-22 18:38 | PCM.PNMED ---
Subjective Date of Service Jun 22, 2017 Subjective Jeff Malcolm is an 81-year-old gentleman with history of hypertension, hyperlipidemia, and CAD who presents in atrial flutter with syncopal episodes 3 admitted for permanent pacemaker placement who will need to be discharged to group home facility to work on strengthening. Patient had resting comfortably in bed with no particular complaints other than gait unsteadiness. Eating, drinking, urinating, and stooling as usual. Patient is agreeable to going to a group home facility. Plan of care was discussed in detail with patient and he was in agreement with same. No significant events overnight. . Exam Vital Signs Vital Sign - Last Date Time Temp Pulse Resp B/P Pulse Ox O2 Delivery O2 Flow Rate FiO2 06/22/17 16:16 37.3 60 18 169/78 97 Room Air 06/21/17 04:03 2.00 Intake and Output 06/21/17 06/21/17 06/22/17 Cumulative From/Thru 15:00 23:00 07:00 06/17/17 15:24 - 06/22/17 06:30 Intake Total 50 ml 750 ml 350 ml 5028 ml Output Total 475 ml 900 ml 500 ml 5700 ml Balance -425 ml -150 ml -150 ml -672 ml Intake Oral 50 ml 750 ml 350 ml 3440 ml IV Total 1588 ml Output Urine Total 475 ml 900 ml 500 ml 5200 ml Emesis 500 ml Exam General: No acute distress, well-developed, well-nourished, appropriately interactive HEENT: Normocephalic, atraumatic. External ears without defect. Pupils equal, round, and reactive to light and accommodation. Anicteric sclerae, moist conjunctivae, and no lid lag. Oropharynx free of erythema and cobble stoning with moist mucosa. Neck: Supple with full range of motion. No jugular venous distension. No bruits. No lymphadenopathy or thyromegaly. Cardiovascular: Regular rate and rhythm with no murmurs, rubs, or gallops appreciated Pulmonary: Clear to auscultation bilaterally with no crackles, wheezes, or rhonchi. Normal respiratory effort with no use of accessory muscles. Abdomen: Bowel tones present. Soft, nontender, nondistended. No hepatosplenomegaly or masses appreciated. Extremities: No clubbing, cyanosis, edema, or lymphadenopathy appreciated. Skin: Normal temperature, turgor, and texture; no rash, ulcers, or subcutaneous nodules appreciated. Neurological: Cranial nerves grossly intact. Normal muscle strength, tone, and bulk. Reflexes, coordination, and sensory function within normal limits. Psychiatric: Normal mood and affect. Alert and oriented to person, place, and time. IVs and Medications Medications Reviewed: Medications were reviewed in detail Lab and Diagnostics Result Diagram: 06/22/17 0345 06/21/17 0345 X-Rays, CTs and MRIs Brain CT No CT evidence of acute intracranial pathology. Dictated and improved by: Vernon Aguila M.D. on 06/17/2017 at 16:51 Chest X-ray Persistent loculated left pleural effusion with adjacent airspace opacity consist with compressive atelectasis versus pneumonia or neoplasm. Continued radiographic surveillance to resolution is recommended. Dictated and approved by: Casey ROMERO Interpreted: Lashaun Waggoner MD on 06/17/2017 at 16:05 . 12-lead ECG See history of present illness Cardiac Echo Impressions Echocardiogram Report Interpretation Summary Aflutter with 2:1 conduction. Normal LV size. Mild LVH. There is mild global hypokinesis. EF is 45-50%. Septal dyskinesis due toconduction system abnormality. Mild MAC with normal mitral valve leaflets. There is mild associated MR. There is moderately elevated gradient across the mitral valve measuring at 6mm Hg. It is most likely due to tachycardia and short diastole. 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 It is functioning normally. Tricuspid valve leaflets are normal with mild-moderate TR. Estimated PA systolic pressure is 35 mm Hg assuming RA pressure of 3 mm Hg. Compared to prior study 12/27/2016 rhythm changed from sinus bradycardia to atrial flutter. Cardiomyopathy is new Assessment & Plan Jeff Malcolm is an 81-year-old gentleman with history of hypertension, hyperlipidemia, and CAD who presents in atrial flutter with syncopal episodes 3 admitted for permanent pacemaker placement who will need to be discharged to group home facility to work on strengthening. Symptomatic atrial flutter, present on admission. Resolved. - Multiple episodes of syncope with likely etiology cardiac/ventricular pause resolved following GEOFFREY and cardioversion on 06/19 - Eliquis started on 06/22; heparin discontinue the same time Acute kidney injury; present on admission. Improved. - Possibly related to fluid overload, or acutely increased blood pressures. - Continue to monitor as outpatient Mild anemia, present on admission. Ongoing. -Hemoglobin currently stable -Iron panel within normal limits -B12 and folate studies within normal limits Hypertension with history of subclavian stenosis on the left, present on admission. Stable, but elevated. - Blood pressures are erratic depending on which arm is checked, nurses are to check RIGHT arm only per request of cardiology. - Systolic Blood pressures were considerably lower than previous, lisinopril decreased from 20-10 - Blood pressures and right arm should remain less than 140 at all times. - Doxazosin 4 mg initiated per cardiology request - Carvedilol 25 mg added to patient's regimen 06/19 - Increase lisinopril, as able, based on renal function Systolic CHF, chronic, present on admission. Stable. -Ejection fraction from December revealed 50-55% -JVD noted on exam but no edema noted - Echo completed 06/18/17 shows EF of 45-50% with septal dyskinesis and new cardiomyopathy. - Continue lisinopril, doxazosin, aspirin, carvedilol - Hold Lasix, no evidence of fluid congestion at this time. Restart if patient becomes fluid congested. History restrictive lung disease-continue inhalers, holding prednisone CAD with hx of CABG-continue aspirin HLP- Lipid panel within normal limits, pravastatin 40 mg Peripheral neuropathy - Pt involved in the patient's care and evaluating discharge. Yesterday PT stated that the patient was able to be discharged home , however on discharge today the nurse noted that the patient was quite unsteady on his feet. The patient also notes these changes and feels more unsteady than his typical baseline. We are currently working with the patient and his family to find an appropriate place that the patient may go to for supervision over the next couple of days as he regains his strength. Disposition: Patient may discharge home in the next 24 hours if an appropriate place can be found which provides 24-hour care. Home health will not be enough due to the infrequency of visits. . VTE Prophylaxis: Other (heparin drip) Resuscitation Status: CPR: Attempt Resuscitation Justyn Tyson MD Jun 22, 2017 18:38
[2017-06-23 00:05] VITALS: BP 141/57; PULSE 66; RESP 22; O2SAT 94
[2017-06-23 03:50] VITALS: BP 164/79; PULSE 60; RESP 20; O2SAT 96
--- NOTE | 2017-06-23 04:55 | NUR ---
HTN/CPAP Right arm BP this morning 160s/70s, per note goal to be less than 140. MD notified and ordered to give Coreg and Lisinopril early this morning. Home CPAP set up by RT last night. Pt states a much more restful sleep with this. Other vitals stable. Ongoing care.
[2017-06-23 05:57] VITALS: PULSE 60
[2017-06-23 09:05] VITALS: BP 175/73; PULSE 60; RESP 20; O2SAT 96
[2017-06-23] MEDS: Salmeterol 50 mcg/Puff 28 Inhalation Diskus INHALATION SCH (09:16)
[2017-06-23 10:34] VITALS: PULSE 60
--- NOTE | 2017-06-23 11:49 | PCM.DIMED ---
Pierre Cullen DO 06/23/17 1149: Discharge Instructions Date of Service Jun 23, 2017 Dates of Hospitalization Jun 17, 2017 at 16:59 Discharge Diagnosis Discharge Diagnosis Symptomatic atrial flutter; present on admission; ongoing Acute kidney injury; present on admission; ongoing Mild anemia; is on medicine; ongoing Hypertension with history of subclavian stenosis on the left Systolic CHF, chronic; present on admission; stable History restrictive lung disease, chronic CAD with hx of CABG, chronic HLP, chronic Peripheral neuropathy, chronic Medication Instructions Additional med instructions In addition to your regular home medications Please take Eliquis 2.5mg twice per day take carvedilol 25mg QD until seen by cardiology Diet Discharge Diet: Heart Healthy Activity Discharge Activity: No restrictions Call your provider Call your provider for: Fever or Chills, Shortness of breath, Bleeding, Chest pain, Vomitting, Excessive diarrhea, Weakness (unilateral) Patient Instructions Patient Instructions Work on getting stronger and getting your feet underneath you. Follow-up plan Followup closely with cardiology and PCP Follow-up Provider: Saurabh Crane MD Follow-up with PCP in: 1 week Provider: Tracey Stephens MD Follow-up in: 1 week Justyn Tyson MD 06/23/17 1631: Discharge Instructions Attending's Statement The patient was seen and examined together with Dr. Cullen on 06/23/2017 and I agree with the history, exam and plan as outlined in the note above. . Pierre Cullen DO Jun 23, 2017 11:49 Justyn Tyson MD Jun 23, 2017 16:31
[2017-06-23 12:06] VITALS: BP 115/56; PULSE 60; RESP 20; O2SAT 93
--- NOTE | 2017-06-23 14:54 | NUR ---
Social Work: Discharge Data: Pt is on day 6 of hospitalization. EMR reviewed. Pt discussed in multidisciplinary rounds. D/C orders are in. [facility] spoke with [facility], they can accept pt today. [facility] set up transportation for pt via cabulance at 3:45pm. [facility] [employer] notified RN, pt, and pt's daughter. No further d/c planning needs at this time. [facility] will continue to follow if needs arise. Assessment: Pt who is independent at baseline, currently not capable of self care, needing SNF. Plan: Pt will d/c to [facility] via cabulance at 3:45pm. [facility] [employer] notified RN, pt, and pt's daughter. No further d/c planning needs at this time. [facility] will continue to follow if needs arise. ASHLEY Hebert
--- NOTE | 2017-06-23 16:00 | NUR ---
Discharge to SNF pt ordered for discharge to SNF, [facility] for further strengthening. pt aware and agreeable. pt alert and oriented. verbal phone report given to Mary nurse at SNF. pt transported via wheelchair and all belongings at about 1555.
--- NOTE | 2017-06-23 17:47 | PCM.DC.MED ---
Discharge Summary Date of Service Jun 23, 2017 Dates of Hospitalization Date of Hospital Admission Jun 17, 2017 at 16:59 Date of Discharge: Jun 23, 2017 Providers: Admitting Physician: Justyn Tyson MD Primary Care Physician: Saurabh Crane MD Attending Physician: Justyn Tyson MD Diagnosis at Time of Discharge Diagnosis at Time of Discharge Symptomatic atrial flutter; present on admission; ongoing Acute kidney injury; present on admission; ongoing Mild anemia; is on medicine; ongoing Hypertension with history of subclavian stenosis on the left Systolic CHF, chronic; present on admission; stable History restrictive lung disease, chronic CAD with hx of CABG, chronic HLP, chronic Peripheral neuropathy, chronic Procedures XRay, CTs & MRIs Brain CT No CT evidence of acute intracranial pathology. Dictated and improved by: Vernon Aguila M.D. on 06/17/2017 at 16:51 Chest X-ray Persistent loculated left pleural effusion with adjacent airspace opacity consist with compressive atelectasis versus pneumonia or neoplasm. Continued radiographic surveillance to resolution is recommended. Dictated and approved by: Casey ROMERO Interpreted: Lashaun Waggoner MD on 06/17/2017 at 16:05 . ECG 12 Lead See history of present illness Cardiac Echo Impression Echocardiogram Report Interpretation Summary Aflutter with 2:1 conduction. Normal LV size. Mild LVH. There is mild global hypokinesis. EF is 45-50%. Septal dyskinesis due toconduction system abnormality. Mild MAC with normal mitral valve leaflets. There is mild associated MR. There is moderately elevated gradient across the mitral valve measuring at 6mm Hg. It is most likely due to tachycardia and short diastole. 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 It is functioning normally. Tricuspid valve leaflets are normal with mild-moderate TR. Estimated PA systolic pressure is 35 mm Hg assuming RA pressure of 3 mm Hg. Compared to prior study 12/27/2016 rhythm changed from sinus bradycardia to atrial flutter. Cardiomyopathy is new Brief History Taken from History and Physical composed by Dr. Bustamante on 06/17/17 81-year-old male with a history hypertension, hyperlipidemia, and CAD who was recently admitted for diabetic foot ulcer present to the emergency department via EMS due to syncopal episode that occurred while putting groceries in the back of his car. Patient states that he had another syncopal episode yesterday when he was sitting down trying to tie his shoe and then passed out and fell on the floor. The patient states that he can only feel is coming on right before he passes out and began to feel dizzy and lightheaded before waking up on his back with people standing around. There is no incontinence of bowel or bladder and no reports of shaking. It is questionable whether the patient had a second syncopal episode following the episode that brought him in here. Patient was noted to be in A. fib when EMS arrived and in the emergency department, rhythm strips indicated a pause greater than 3 seconds with suspected atrial flutter. Dr. Stephens was able to assess the patient and his currently attempting to get a hold of Dr. Green or possible ablation, although there is no timetable. EKG showed probable A flutter with a ventricular rhythm that was was irregular and a prolonged QTC at 547. Blood work showed new acute kidney injury and mild hyperglycemia. Troponin was negative and TSH was normal. . Hospital Course Jeff Malcolm is an 81-year-old gentleman with history of hypertension, hyperlipidemia, and CAD who presents in atrial flutter with syncopal episodes 3 admitted for permanent pacemaker placement who will need to be discharged to shelter facility to work on strengthening. The patient appeared to be doing well on 06/21/17 and was being prepared for DC when he became acutely unsteady on his feet and diaphoretic, likely secondary to new beta erin initiation; thus it was decided to DC the patient to a SNF as a transitional phase to receive physical therapy and more intensive assistance than he could get at home. Symptomatic atrial flutter, present on admission. Resolved. - Multiple episodes of syncope with likely etiology cardiac/ventricular pause resolved following GEOFFREY and cardioversion on 06/19 - Eliquis started on 06/22 Acute kidney injury; present on admission. Improved. - Possibly related to fluid overload, or acutely increased blood pressures. - Continue to monitor as outpatient Mild anemia, present on admission. Ongoing. -Hemoglobin currently stable -Iron panel within normal limits -B12 and folate studies within normal limits Hypertension with history of subclavian stenosis on the left, present on admission. Stable, but elevated. - Blood pressures are erratic depending on which arm is checked, RIGHT arm only requested by cardiology. - Systolic Blood pressures were considerably lower than previous, lisinopril decreased from 20-10 - Doxazosin 4 mg initiated per cardiology request - Carvedilol 25 mg added to patient's regimen 06/19 - Increase lisinopril, as able, based on renal function Systolic CHF, chronic, present on admission. Stable. -Ejection fraction from December revealed 50-55% -JVD noted on exam but no edema noted - Echo completed 06/18/17 shows EF of 45-50% with septal dyskinesis and new cardiomyopathy. - Continue lisinopril, doxazosin, aspirin, carvedilol - Hold Lasix, no evidence of fluid congestion at this time. Restart if patient becomes fluid congested. History restrictive lung disease-continue inhalers, holding prednisone CAD with hx of CABG-continue aspirin HLP- Lipid panel within normal limits, pravastatin 40 mg Exam Vital Signs (Last) Date Time Temp Pulse Resp B/P Pulse Ox O2 Delivery O2 Flow Rate FiO2 06/23/17 12:38 Room Air 06/23/17 12:06 36.9 60 20 115/56 93 06/21/17 04:03 2.00 Exam Gen: A/o x3 pleasant elderly gentleman in NAD Neck: Supple, non tender, no JVD HEENT: PERRL, EOMI, no scleral icterus CV: RRR, no murmurs rubs or gallops Resp: Lungs CTA BL, no wheezing rales or rhonchi Abd: Soft, no rebound masses or guarding Extr: Mild BL LE pitting edema, no cyanosis or clubbing Neuro: CN 2-12 grossly intact, no focal neurologic deficit. Psych: Pleasant and appropriate mood and affect. Test 06/17/17 16:02 06/17/17 20:29 06/17/17 23:35 06/18/17 00:01 Iron Level 48ug/dL (35-150) Total Iron Binding Capacity 319ug/dL (250-450) Percent Iron Saturation 15%sat (15-50) Unsaturated Iron Binding 271.4ug/dL Thyroid Stimulating Hormone (TSH) 1.370uIU/mL (0.450-4.500) Vitamin B12 Level 540pg/mL (211-946) Folate 11.1ng/mL (>3.0) Hold Urine Received (Received) Urine Color Dark yellow (YELLOW) Urine Appearance Clear (CLEAR,HAZY) Urine pH 5.5 (5.0-8.0) Urine Specific [place] 1.025 (1.003-1.035) Urine Protein Negativemg/dL (NEG,TRACE) Urine Glucose (UA) Negativemg/dL (NEGATIVE) Urine Ketones Negativemg/dL (NEGATIVE) Urine Occult Blood Negative (NEGATIVE) Urine Nitrite Negative (NEGATIVE) Urine Bilirubin Negative (NEGATIVE) Urine Urobilinogen Normalmg/dL (NORMAL) Urine Leukocyte Esterase Negative (NEGATIVE) Urine RBC 0-2/hpf (0-2) Urine WBC 0-5/hpf (0-5) Urine Epithelial Cells Occasional/hpf (NONE-MOD) Urine Crystals None seen (NONE SEEN) Urine Bacteria Few/hpf (NONE-FEW) Urine Hyaline Casts Occasional/lpf (NONE) Urine Granular Casts None seen (NONE SEEN) Urine Waxy Casts None seen (NONE SEEN) Urine Red Blood Cell Casts None seen (NONE SEEN) Urine White Blood Cell Casts None seen (NONE SEEN) Urine Mucus None seen (None Seen) Urine Trichomonas None seen (NONE SEEN) Urine Yeast None (NONE SEEN) Urinalysis Comment None Urine Culture Reflexed Not indicated Test 06/18/17 02:00 06/18/17 14:05 06/21/17 03:45 06/22/17 03:45 Prothrombin Time 10.5sec (8.1-12.5) Prothromb Time International Ratio 0.98ratio Troponin T 0.010ug/L (0.0-0.011) Triglycerides Level 105mg/dL (0-149) Cholesterol Level 151mg/dL (100-199) LDL Cholesterol, Calculated 78.000mg/dL (0-99) VLDL Cholesterol 21.000mg/dL HDL Cholesterol 52mg/dL (>39) Cholesterol/HDL Ratio 2.90 (0.0-4.4) Activated Partial Thromboplast Time 58.4sec (22.8-33.0) White Blood Count 8.9th/mm3 (3.8-10.1) Red Blood Count 3.46mil/mm3 (4.40-5.80) Mean Corpuscular Volume 91.9fL (81-100) Mean Corpuscular Hemoglobin 29.8pg (27.0-35.0) Mean Corpuscular Hemoglobin Concent 32.4% (32.0-37.0) Red Cell Distribution Width 14.1% (12.3-15.4) Platelet Count 149bil/L (150-400) Neutrophils (%) (Auto) 62.9% (40-74) Lymphocytes (%) (Auto) 13.1% (14-46) Monocytes (%) (Auto) 15.4% (4-12) Eosinophils (%) (Auto) 8.2% (0-5) Basophils (%) (Auto) 0.2% (0-3) Magnesium Level 2.2mg/dL (1.6-2.6) Total Bilirubin 0.5mg/dL (0.0-1.2) Aspartate Amino Transf (AST/SGOT) 16U/L (0-50) Alanine Aminotransferase (ALT/SGPT) 7U/L (0-44) Alkaline Phosphatase 62U/L (25-160) Total Protein 6.3g/dL (6.4-8.4) Albumin 3.6g/dL (3.4-5.0) Hemoglobin 10.3g/dL (13.8-17.2) Hematocrit 31.8% (41.0-50.0) Test 06/22/17 19:11 Sodium Level 139mEq/L (134-144) Potassium Level 4.0mEq/L (3.5-5.2) Chloride Level 103mEq/L (97-108) Carbon Dioxide Level 21mmol/L (18-29) Blood Urea Nitrogen 29mg/dL (8-27) Creatinine 1.15mg/dL (0.76-1.27) Estimat Glomerular Filtration Rate 65mL/min (>59) Glucose Level 128mg/dL (60-99) Calcium Level 8.9mg/dL (8.5-10.1) Discharge Medications Discharge Medications Apixaban (Eliquis) 2.5 Mg Tablet 2.5 MG PO BID Prescribed by: CHRISTOPHER PADRON, DO Aspirin-Expunged Drug, Do Not Renew! (Aspirin-Expunged Drug, Do Not Renew!) 81 Mg Tablet 81 MG PO DAILY (Reported) Carvedilol (Carvedilol) 25 Mg Tablet 25 MG PO BIDWM Prescribed by: CHRISTOPHER PADRON, DO Cetirizine HCl (Zyrtec) 10 Mg Capsule 10 MG PO HS (Reported) Cholecalciferol (Vitamin D3) (Vitamin D3) 1,000 Unit Tab.chew 1,000 UNIT PO DAILY (Reported) Doxazosin (Cardura) 2 Mg Tablet 4 MG PO BID (Reported) Fluticasone Propionate (Fluticasone Propionate Nasal) 16 Gm [place].susp 1 SPRAY NS BID (Reported) Furosemide (Furosemide) 40 Mg Tablet 40 MG PO DAILY (Reported) Hydrocortisone (Hydrocortisone) 20 Mg Tablet 30 MG PO DAILY (Reported) Ketoconazole-Expunged Drug, Do Not Renew! (Ketoconazole-Expunged Drug, Do Not Renew!) 200 Mg Tablet 200 MG PO BID (Reported) Lisinopril (Lisinopril) 10 Mg Tablet 10 MG PO 1-2X DAY (Reported) Metoprolol Tartrate (Metoprolol Tartrate) 25 Mg Tablet 25 MG PO BID (Reported) Phenylephrine HCl (Sudafed PE) 10 Mg Tablet 10 MG PO Q12HR (Reported) Pravastatin (Pravastatin) 40 Mg Tablet 40 MG PO DAILY (Reported) Salmeterol Xinafoate (Serevent Diskus) 50 Mcg/Puff Inhaler 1,400 MCG IH Q12HR ( Reported) As needed Albuterol Sulfate (Ventolin HFA Inhaler) 200 Puff/18 Gm Inhaler 1 PUFF INH Q4- 6HR PRN PRN For Wheezing (Reported) Additional med instructions In addition to your regular home medications Please take Eliquis 2.5mg twice per day take carvedilol 25mg QD until seen by cardiology Followup Plan Disposition: [facility] Follow-up plan Followup closely with cardiology and PCP Discharge Diet: Heart Healthy Discharge Activity: No restrictions Patient Instructions Work on getting stronger and getting your feet underneath you. Follow-up Provider: Saurabh Crane MD Follow-up with PCP in: 1 week Provider: Tracey Stephens MD Follow-up in: 1 week Time spent Greater than 30 minutes was spent in preparation of discharge with greater than 50% of that time dedicated to patient counseling and coordination of care. . Attending Statement The patient was seen and examined together with Dr. Cullen on 06/23/2017 and I agree with the history, exam and plan as outlined in the note above. . copies to: Saurabh Crane MD; Tracey Stephens MD, David E DO Jun 23, 2017 17:47 Justyn Tyson MD Jun 24, 2017 07:31
== END 2017-06-23 15:55 | DRG 242 ==
LOC: SED 15:17 → OBSVTOIN 16:59 → PCC 16:59
PROVIDERS: ADMIT Internal Medicine; ATTEND Internal Medicine
PROC: 0JH606Z Insertion of Pacemaker, Dual Chamber into Chest Subcutaneous Tissue and Fascia, Open Approach (ICD-10-PCS; principal; 2017-06-18)
PROC: 02H63JZ Insertion of Pacemaker Lead into Right Atrium, Percutaneous Approach (ICD-10-PCS; 2017-06-18)
PROC: 02HK3JZ Insertion of Pacemaker Lead into Right Ventricle, Percutaneous Approach (ICD-10-PCS; 2017-06-18)
PROC: B245ZZ4 Ultrasonography of Left Heart, Transesophageal (ICD-10-PCS; 2017-06-19)
PROC: 5A2204Z Restoration of Cardiac Rhythm, Single (ICD-10-PCS; 2017-06-19)
DX: I48.92 Unspecified atrial flutter (principal); I50.23 Acute on chronic systolic (congestive) heart failure; N17.9 Acute kidney failure, unspecified; I44.2 Atrioventricular block, complete; I49.5 Sick sinus syndrome; Z79.82 Long term (current) use of aspirin; N18.3 Chronic kidney disease, stage 3 (moderate); Z95.2 Presence of prosthetic heart valve; I48.4 Atypical atrial flutter; I10 Essential (primary) hypertension; I25.10 Atherosclerotic heart disease of native coronary artery without angina pectoris; E78.5 Hyperlipidemia, unspecified; I48.0 Paroxysmal atrial fibrillation; Z95.1 Presence of aortocoronary bypass graft; Z87.891 Personal history of nicotine dependence; G62.9 Polyneuropathy, unspecified